=== PATIENT | male | born 1955 | race African-American/Black ===

== ENCOUNTER 2017-08-08 19:06 | Emergency (ER) | payer MEDICARE, OTHER ==
[~2017-08-08] VITALS: Ht 167.6 cm; Wt 40.0 kg
[~2017-08-08 19:06] MED LIST: ALBU1AER INH; ALPR0.5T99 PO; ASPI325T PO; ATOR10TA PO; FURO40TA PO; HYDR200T42 PO; LIDO5DIS35 TD; LORTA10 PO; METO25CR PO; NORV10TA PO; OMEP20TA39 PO; OXYC15TA PO; POTA-243 PO; PRED10 PO; SOMA350T PO; SPIRCAP INH; SYMB80AE INH; TRAZ50TA4 PO
[2017-08-08 19:17] VITALS: BP 110/67; PULSE 99; RESP 18; TEMP 99.9
--- NOTE | 2017-08-08 19:34 | PD ---
HPI Chief Complaint: GI Complaint Time Seen by Provider: 19:24 Travel History International Travel<30 days: No Contact w/Intl Traveler<30days: No Traveled to known affect area: No History of Present Illness HPI Patient is a 62-year-old male with lupus presents emergency department for evaluation of nausea vomiting and loose stools for the past few days. Patient states he thinks he is dehydrated. He states that he has pain but all over but no significant pain in his abdomen. Patient is quite thin and when asked about weight loss he states he has lost 5 pounds in the past couple of months. Review his records shows that he was here in 2016 at that time weight in excess of 52 kg and today only weighs 40 kg. These are actual measured weights as documented in our EMR. The patient denies any blood in the stool blood in the emesis. He states he has had colonoscopy which was negative, states been sometimes he had a chest x-ray. No other close sick contacts. He is accompanied by several family members all of whom appear healthy. Patient states the symptoms are severe, for the past few days, associated signs and symptoms in context as above per PFSH Past Medical History Arthritis: Yes Asthma: Yes Autoimmune Disease: Yes (HX OF LUPUS SINCE 1988) Anxiety: Yes Heart Rhythm Problems: No Cancer: No Cardiac Catheterization: Yes Cardiovascular Problems: Yes (STENT X2, [place] ) High Cholesterol: Yes Chest Pain: Yes COPD: No Cerebrovascular Accident: Yes Coronary Artery Disease: Yes Diabetes: No Diminished Hearing: No Endocrine: No GERD: No Glaucoma: No Genitourinary: No Headaches: No Hepatitis: No Hiatal Hernia: No Hypertension: Yes Immune Disorder: Yes (LUPUS) Kidney Stones: No Medical other: Yes ( PANCREATITIES) Musculoskeletal: Yes (ARTHRITIS, BACK) Neurologic: Yes (SEIZURES) Psychiatric: Yes (ANXIETY, DEPRESSION) Reproductive: No Respiratory: Yes (ASTHMA, COPD) Immunizations Current: No Migraines: No Myocardial Infarction: Yes Pancreatitis: Yes Renal Failure: No Seizures: No Sleep Apnea: No Thyroid Disease: No Ulcer: No Tetanus Vaccination: > 5 Years Influenza Vaccination: No PNEUMOCCOCAL Vaccine (Year): 1 Past Surgical History Abdominal Surgery: No Appendectomy: No Body Medical Devices: STENT Cardiac Surgery: Yes (STENT, CABG) Cholecystectomy: No Coronary Stent: Yes (06/10 X 5) Ear Surgery: No Endocrine Surgery: No Eye Surgery: No Genitourinary Surgery: Yes (BILATERAL INGUNIAL HERNIA) Gynecologic Surgery: No Oral Surgery: No Pacemaker: No Thoracic Surgery: No Other Surgery: Yes (HERNIA REPAIR X 2) Social History Alcohol Use: No Tobacco Use: No (QUIT MARCH 2013) Substance Use: No Allergies-Medications (Allergen,Severity, Reaction): Coded Allergies: Sulfa (Sulfonamide Antibiotics) (Unverified Allergy, Severe, SWELLING, 08/08) acetaminophen (Unverified Allergy, Severe, ALLERGIC TO BINDER - ITCHING, ) benazepril (Unverified Allergy, Severe, ANGIOEDEMA, 08/08/17) captopril (Unverified Allergy, Severe, ANGIOEDEMA, 08/08/17) codeine (Unverified Allergy, Severe, ALLERGIC TO BINDER - ITCHING, 08/08/17) enalaprilat (Unverified Allergy, Severe, ANGIOEDEMA, 08/08/17) fosinopril (Unverified Allergy, Severe, ANGIOEDEMA, 08/08/17) lisinopril (Unverified Allergy, Severe, ANGIOEDEMA, 08/08/17) methotrexate (Unverified Allergy, Severe, SWELLING, 08/08/17) quinapril (Unverified Allergy, Severe, ANGIOEDEMA, 08/08/17) *MDRO Multi-Drug Resistant Organism (Verified Allergy, Unknown, 08/08/17) MRSA Reported Meds & Prescriptions Reported Meds & Active Scripts Active Zofran (Ondansetron HCl) 4 Mg Tab 4 Mg PO Q6HR PRN Reported Plaquenil (Hydroxychloroquine Sulfate) 200 Mg Tab 200 Mg PO BID Take with food Prednisone 20 Mg Tab 20 Mg PO DIRECTED 40 MG twice a day x 3 days, then 20 MG daily x 3 days, then 10 MG daily x 3 days Spiriva Handihaler (Tiotropium Inh) 18 Mcg Cap 18 Mcg INH DAILY 1 capsule = 18 mcg Trazodone (Trazodone HCl) 50 Mg Tab 50 Mg PO HS Potassium Chloride ER (Potassium Chloride) 10 Meq Tab 10 Meq PO BID Omeprazole 20 Mg Tab 20 Mg PO DAILY Metoprolol Succinate ER 24 HR (Metoprolol Succinate) 25 Mg Tab 25 Mg PO DAILY Norvasc (Amlodipine Besylate) 10 Mg Tab 10 Mg PO DAILY Oxycodone (Oxycodone HCl) 15 Mg Tab 15 Mg PO Q6H PRN Hydrocodone-Acetaminophen 10-325 mg Tab 1 Tab PO Q6H PRN Lasix (Furosemide) 40 Mg Tab 40 Mg PO DAILY Soma (Carisoprodol) 350 Mg Tab 350 Mg PO QID PRN Symbicort Inh (Budesonide/Formoterol Fumarate) 80-4.5 Mcg/Act Aero 1 Puff INH Q12HR Atorvastatin (Atorvastatin Calcium) 10 Mg Tab 10 Mg PO HS Aspirin 325 Mg Tab 325 Mg PO DAILY Xanax (Alprazolam) 2 Mg Tab 2 Mg PO Q8H PRN Proair Hfa 8.5 GM Inh (Albuterol Sulfate) 90 Mcg/Act Aer 2 Puff INH Q4-6H PRN 108 mcg/actuation Review of Systems Except as stated in HPI: all other systems reviewed are Neg Physical Exam Narrative GENERAL: Well-developed, cachectic male with temporal wasting. Nontoxic appearance. SKIN: Focused skin assessment warm/dry. HEAD: Atraumatic. Normocephalic. EYES: Pupils equal and round. No scleral icterus. No injection or drainage. ENT: No nasal bleeding or discharge. Mucous membranes pink and moist. NECK: Trachea midline. No JVD. CARDIOVASCULAR: Regular rate and rhythm. No murmur appreciated. RESPIRATORY: No accessory muscle use. Clear to auscultation. Breath sounds equal bilaterally. GASTROINTESTINAL: Abdomen soft, non-tender, nondistended. Hepatic and splenic margins not palpable. MUSCULOSKELETAL: No obvious deformities. No clubbing. No cyanosis. No edema. NEUROLOGICAL: Awake and alert. No obvious cranial nerve deficits. Motor grossly within normal limits. Normal speech. PSYCHIATRIC: Appropriate mood and affect; insight and judgment normal. Data Data Last Documented VS Vital Signs Date Time Temp Pulse Resp B/P (MAP) Pulse Ox O2 Delivery O2 Flow Rate FiO2 08/08/17 23:38 85 16 111/75 (87) 96 08/08/17 19:17 99.9 Orders Orders Complete Blood Count With Diff (08/08/17 19:33) Comprehensive Metabolic Panel (08/08/17 19:33) Lipase (08/08/17 19:33) Prothrombin Time / Inr (Pt) (08/08/17 19:33) Act Partial Throm Time (Ptt) (08/08/17 19:33) Urinalysis - C+S If Indicated (08/08/17 19:33) Iv Access Insert/Monitor (08/08/17 19:33) Ecg Monitoring (08/08/17 19:33) Oximetry (08/08/17 19:33) Ondansetron Inj (Zofran Inj) (08/08/17 19:45) Sodium Chloride 0.9% Flush (Ns Flush) (08/08/17 19:45) Electrocardiogram (08/08/17 19:33) Chest, Single Ap (08/08/17 19:33) Sodium Chlorid 0.9% 500 Ml Inj (Ns 500 M (08/08/17 19:45) Ct Abd/Pel W Iv Contrast(Rout) (08/08/17 ) Oral Contrast - Adult (08/08/17 20:11) Diatrizoate Liq ( Gastrosay Liq) (08/08/17 21:03) Ondansetron Inj (Zofran Inj) (08/08/17 22:00) Iohexol 350 Inj (Omnipaque 350 Inj) (08/08/17 23:03) Ed Discharge Order (08/08/17 23:30) Labs Laboratory Tests Test 08/08/17 19:50 08/08/17 20:23 White Blood Count 3.0 TH/MM3 Red Blood Count 4.88 MIL/MM3 Hemoglobin 13.1 GM/DL Hematocrit 40.6 % Mean Corpuscular Volume 83.2 FL Mean Corpuscular Hemoglobin 26.8 PG Mean Corpuscular Hemoglobin Concent 32.2 % Red Cell Distribution Width 13.4 % Platelet Count 192 TH/MM3 Mean Platelet Volume 8.7 FL CBC Comment AUTO DIFF Differential Total Cells Counted 100 Neutrophils % (Manual) 62 % Band Neutrophils % 2 % Lymphocytes % 29 % Monocytes % 7 % Neutrophils # (Manual) 1.9 TH/MM3 Differential Comment FINAL DIFF MANUAL Atypical Lymphocytes % Platelet Estimate NORMAL Platelet Morphology Comment NORMAL Ovalocytes 1+ Prothrombin Time 12.7 SEC Prothromb Time International Ratio 1.3 RATIO Activated Partial Thromboplast Time 52.3 SEC Blood Urea Nitrogen 30 MG/DL Creatinine 0.79 MG/DL Random Glucose 90 MG/DL Total Protein 9.5 GM/DL Albumin 3.1 GM/DL Calcium Level 9.4 MG/DL Alkaline Phosphatase 93 U/L Aspartate Amino Transf (AST/SGOT) 77 U/L Alanine Aminotransferase (ALT/SGPT) 24 U/L Total Bilirubin 0.4 MG/DL Sodium Level 134 MEQ/L Potassium Level 4.8 MEQ/L Chloride Level 99 MEQ/L Carbon Dioxide Level 27.8 MEQ/L Anion Gap 7 MEQ/L Estimat Glomerular Filtration Rate 120 ML/MIN Lipase 317 U/L Urine Color YELLOW Urine Turbidity CLEAR Urine pH 6.0 Urine Specific Reagan 1.020 Urine Protein 30 mg/dL Urine Glucose (UA) NEG mg/dL Urine Ketones NEG mg/dL Urine Occult Blood NEG Urine Nitrite NEG Urine Bilirubin NEG Urine Urobilinogen 0.2 MG/DL Urine Leukocyte Esterase NEG Urine RBC 0-3 /hpf Urine WBC 0-2 /hpf Urine Squamous Epithelial Cells 0-5 /hpf Microscopic Urinalysis Comment CULT NOT INDICATED MDM Medical Decision Making Medical Screen Exam Complete: Yes Emergency Medical Condition: Yes Differential Diagnosis Undiagnosed cancer, malnourishment, dehydration, acute kidney injury, electrolyte abnormality, gastritis, gastroenteritis, pancreatitis, cholecystitis. Narrative Course Patient was roomed in the emergency department, cachectic my concern is for undiagnosed cancer in this patient, the chest x-ray was negative on him and a CAT scan of his abdomen was also negative. Basic labs are also reassuring. The patient was given normal saline and Zofran was able to tolerate his p.o. contrast just fine. Feeling better he was reassured with these negative imaging. I discussed with him pushing p.o. nutrition and he is taking Ensure twice a day already. Also discussed with him a multivitamin. I told him that he is welcome to eat any food he desires at this time as he needs to gain some weight. Discussed with him need to follow-up with his primary care physician return to ED criteria. He and his family are all very pleasant and thanks me. I discussed with them that they are welcome to return to the emergency department anytime they think he has an acute emergency. Diagnosis Primary Impression: N&V (nausea and vomiting) Med/Other Pt SpecificInfo: Prescription(s) given Scripts Ondansetron (Zofran) 4 Mg Tab 4 MG PO Q6HR Y for NAUSEA OR VOMITING, #20 TAB 0 Refills Prov: Sanjiv Heaton MD 08/08/17 Disposition: 01 DISCHARGE HOME Condition: Stable Sanjiv Heaton MD Aug 08, 2017 19:34
[2017-08-08] MEDS ORDERED: XANA2TAB2 PO (19:40)
[2017-08-08] MEDS ORDERED: FURO1TAB60 PO (19:40)
[2017-08-08] MEDS ORDERED: TRAZ50TA12 PO (19:40)
[2017-08-08] MEDS ORDERED: ATOR10TA15 PO (19:40)
[2017-08-08] MEDS ORDERED: OMEP20TA93 PO (19:40)
[2017-08-08] MEDS ORDERED: OXYC15TA PO (19:40)
[2017-08-08] MEDS ORDERED: ALBUAER3 INH (19:40)
[2017-08-08] MEDS ORDERED: PLAQ200T PO (19:40)
[2017-08-08] MEDS ORDERED: POTA10TA2 PO (19:40)
[2017-08-08] MEDS ORDERED: ASPI-183 PO (19:40)
[2017-08-08] MEDS ORDERED: SYMB80AE INH (19:40)
[2017-08-08] MEDS ORDERED: METO1TAB42 PO (19:40)
[2017-08-08] MEDS ORDERED: SPIRCAP INH (19:40)
[2017-08-08] MEDS ORDERED: PRED20 PO (19:40)
[2017-08-08] MEDS ORDERED: AMLO10 PO (19:40)
[2017-08-08] MEDS ORDERED: HYDR-3583 PO (19:40)
[2017-08-08] MEDS ORDERED: SOMA350T PO (19:40)
[2017-08-08] MEDS ORDERED: ONDANSETRON HCL 4 MG/2 ML VIAL IVP ONE (19:45)
[2017-08-08] MEDS ORDERED: SODIUM CHLORID 0.9% 500 ML INJ 500 ML IV ONE (19:45)
[2017-08-08] MEDS ORDERED: SODIUM CHLORIDE 0.9% FLUSH 10 ML FLUSH IV FLUSH PRN (19:45)
--- NOTE | 2017-08-08 20:14 | RADRPT ---
EXAM DATE/TIME: 08/08/2017 19:40 [facility] COMPARISON: CHEST SINGLE AP, July 16, 2014, 13:56. INDICATIONS : Cough. MEDICAL HISTORY : Hypertension. Myocardial infarction. Lupus. Coronary artery disease. Asthma. COPD. SURGICAL HISTORY : CABG. Coronary artery stent. Cardiac catheterization. ENCOUNTER: Initial ACUITY: 2 weeks PAIN SCORE: 0/10 LOCATION: Bilateral chest FINDINGS: A single view of the chest demonstrates postoperative CABG. No consolidation or effusion. No pneumoth orax. CONCLUSION: 1. Postop CABG. No active disease. Usama Daniels MD on August 08, 2017 at 20:10 Board Certified Radiologist. This report was verified electronically.
[2017-08-08 20:24] LABS: CHLORIDE 99 MEQ/L (98-107); SODIUM (NA) 134 MEQ/L (136-145)
[2017-08-08 20:30] LABS: ALBUMIN 3.1 GM/DL (3.4-5.0); BICARBONATE 27.8 MEQ/L (21.0-32.0); BLOOD UREA NITROGEN 30 MG/DL (7-18); CALCIUM 9.4 MG/DL (8.5-10.1); GLUCOSE,RANDOM 90 MG/DL (74-106)
[2017-08-08 20:31] LABS: HEMATOCRIT 40.6 % (39.0-51.0); HEMOGLOBIN 13.1 GM/DL (13.0-17.0); MEAN CELL VOLUME 83.2 FL (80.0-100.0); MEAN CORPUSCULAR HEMOGLOBIN 26.8 PG (27.0-34.0); MEAN CORPUSCULAR HGB CONC 32.2 % (32.0-36.0); MEAN PLATELET VOLUME 8.7 FL (7.0-11.0); PLATELET COUNT 192 TH/MM3 (150-450); RED BLOOD COUNT 4.88 MIL/MM3 (4.50-5.90); RED CELL DISTRIBUTION WIDTH 13.4 % (11.6-17.2)
[2017-08-08 20:33] LABS: ALT (GPT) 24 U/L (12-78); AST (GOT) 77 U/L (15-37); CREATININE 0.79 MG/DL (0.60-1.30); GLOMERULAR FILTRATION RATE 120 ML/MIN (>89)
[2017-08-08 20:34] LABS: TOTAL BILIRUBIN ADULT 0.4 MG/DL (0.2-1.0); TOTAL PROTEIN 9.5 GM/DL (6.4-8.2)
[2017-08-08 20:36] LABS: ALKALINE PHOSPHATASE 93 U/L (45-117)
[2017-08-08 20:37] LABS: INTERNATIONAL NORMALIZED RATIO 1.3 RATIO; PROTHROMBIN TIME - PATIENT 12.7 SEC (9.8-11.6)
[2017-08-08 20:40] LABS: BILIRUBIN, URINE NEG (NEG); BLOOD, URINE NEG (NEG); GLUCOSE,URINE NEG (NEG); KETONE, URINE NEG (NEG); NITRITE,URINE NEG (NEG); URINE COLOR YELLOW (YELLW/STRAW); URINE LEUKOCYTE ESTERASE NEG (NEG)
[2017-08-08 20:51] LABS: RBC, URINE 0-3 /hpf (0-3); SQUAMOUS EPITHELIAL CELL URINE 0-5 /hpf (0-5); WBC, URINE 0-2 /hpf (0-5)
[2017-08-08] MEDS ORDERED: DIATRIZOATE MEGLUM/DIATRIZOATE SOD 9 ML CUP ONE (21:03)
[2017-08-08 21:06] LABS: BANDS 2 % (0-6); LYMPHOCYTES 29 % (9-44); MONOCYTES 7 % (0-8); NEUTROPHIL # MANUAL DIFF 1.9 TH/MM3 (1.8-7.7); OVALOCYTES 1+ (NORMAL); POLYS (SEG NEUTROPHILS) 62 % (16-70)
--- NOTE | 2017-08-08 21:35 | EKG ---
Date Performed: 08/08/2017 Time Performed: 19:40:13 PTAGE: 62 years EKG: Sinus rhythm VOLTAGE CRITERIA FOR LVH POSSIBLE SEPTAL MYOCARDIAL INFARCTION ABNORMAL ECG Compared to prior electr ocardiogram, Nonspecific T wave changes are less marked PREVIOUS TRACING : 12/16/2015 09.43 DOCTOR: Cristian Szymanski Interpretating Date/Time 08/08/2017 21:33:56
[2017-08-08 21:55] VITALS: BP 133/73; PULSE 73; RESP 16
[2017-08-08] MEDS ORDERED: ONDANSETRON HCL 4 MG/2 ML VIAL IV PUSH ONE (22:00)
[2017-08-08] MEDS ORDERED: IOHEXOL 350 MG/ML 10 ML VIAL (for RAD DIAG) IVCONTRAST ONE (23:03)
--- NOTE | 2017-08-08 23:14 | RADRPT ---
EXAM DATE/TIME: 08/08/2017 22:37 [facility] COMPARISON: No previous studies available for comparison. INDICATIONS : Abdominal pain. Nausea. IV CONTRAST: 100 cc Omnipaque 350 (iohexol) IV ORAL CONTRAST: Prescribed oral contrast ingested. RADIATION DOSE: 4.44 CTDIvol (mGy) MEDICAL HISTORY : Pancreatitis. Cardiovascular disease Chronic obstructive pulmonary disease. SURGICAL HISTORY : Inguinal hernia repair. Coronary artery stent. ENCOUNTER: Initial ACUITY: 1 day PAIN SCALE: 0/10 LOCATION: Abdomen. TECHNIQUE: Volumetric scanning of the abdomen and pelvis was performed. Using automated exposure control and ad justment of the mA and/or kV according to patient size, radiation dose was kept as low as reasonably achievable to obtain optimal diagnostic quality images. DICOM format image data is available electro nically for review and comparison. FINDINGS: LOWER LUNGS: Bibasilar scarring greater right lower lobe. LIVER: Homogeneous density with subcentimeter low-density in the right lobe. There is no dilation of the bi liary tree. No calcified gallstones. SPLEEN: Normal size without lesion. PANCREAS: Within normal limits. KIDNEYS: Normal in size and shape. There is no mass, stone or hydronephrosis. ADRENAL GLANDS: [place] generally normal. Left adrenal gland contains macroscopic fat consistent with myelolipoma.. VASCULAR: There is no aortic aneurysm. Mild atherosclerotic changes of the abdominal aorta. BOWEL/MESENTERY: Mild dilatation of the stomach which contains fluid. The small bowel, and colon demonstrate no acute abnormality. There is no free intraperitoneal air or fluid. ABDOMINAL WALL: Within normal limits. RETROPERITONEUM: There is no lymphadenopathy. BLADDER: No wall thickening or mass. REPRODUCTIVE: Within normal limits. INGUINAL: There is no lymphadenopathy or hernia. MUSCULOSKELETAL: Spondylolisthesis/spondylolysis at the lumbosacral junction. CONCLUSION: 1. Subcentimeter hepatic low-density likely benign. 2. Benign left adrenal myelolipoma 3. Stomach is mildly dilated. 4. No acute inflammatory process. Dominik Sánchez MD on August 08, 2017 at 23:06 Board Certified Radiologist. This report was verified electronically.
[2017-08-08] MEDS ORDERED: ZOFR4TAB PO (23:32)
[2017-08-08 23:38] VITALS: BP 111/75
== END 2017-08-08 23:47 | disposition home or self-care (01) ==
LOC: PHED 19:06
DX: R11.2 Nausea with vomiting, unspecified (principal); M32.9 Systemic lupus erythematosus, unspecified; F41.9 Anxiety disorder, unspecified; I10 Essential (primary) hypertension; E78.00 Pure hypercholesterolemia, unspecified; I25.10 Atherosclerotic heart disease of native coronary artery without angina pectoris; F32.9 Major depressive disorder, single episode, unspecified; Z86.73 Personal history of transient ischemic attack (TIA), and cerebral infarction without residual deficits; Z87.891 Personal history of nicotine dependence
CPT/HCPCS: 71045; 74177; 80053; 81001; 83690; 85007; 85027; 85610; 85730; 93005; 96361; 96374; 96376; 99285; J2405; J7040; Q9963; Q9967

== ENCOUNTER 2017-08-19 14:34 | Inpatient (IN) | payer MEDICARE, MEDICAID ==
[~2017-08-19] VITALS: Ht 170.2 cm; Wt 46.0 kg
[~2017-08-19 14:34] MED LIST changes: -ALBU1AER INH; +ALBUAER3 INH; -ALPR0.5T99 PO; +AMLO10 PO; +ASPI-183 PO; -ASPI325T PO; -ATOR10TA PO; +ATOR10TA15 PO; +FURO1TAB60 PO; -FURO40TA PO; +HYDR-3583 PO; -HYDR200T42 PO; -LIDO5DIS35 TD; -LORTA10 PO; +METO1TAB42 PO; -METO25CR PO; -NORV10TA PO; -OMEP20TA39 PO; +OMEP20TA93 PO; +PLAQ200T PO; -POTA-243 PO; +POTA10TA2 PO; -PRED10 PO; +PRED20 PO; +TRAZ50TA12 PO; -TRAZ50TA4 PO; +XANA2TAB2 PO; +ZOFR4TAB PO
[2017-08-19 14:47] VITALS: BP 104/76; PULSE 83; RESP 16; TEMP 98.1; O2SAT 94
[2017-08-19 15:20] LABS: AUTOMATED NEUTROPHIL # 2.2 TH/MM3 (1.8-7.7); BASOPHIL % 0.4 % (0.0-2.0); LYMPH % 20.6 % (9.0-44.0); LYMPHOCYTE # 0.6 TH/MM3 (1.0-4.8); MEAN CELL VOLUME 81.5 FL (80.0-100.0); MEAN CORPUSCULAR HEMOGLOBIN 26.5 PG (27.0-34.0); MEAN CORPUSCULAR HGB CONC 32.5 % (32.0-36.0); MEAN PLATELET VOLUME 8.4 FL (7.0-11.0); MONO % 8.4 % (0.0-8.0); MONOCYTE # 0.3 TH/MM3 (0-0.9); NEUT % 70.6 % (16.0-70.0); PLATELET COUNT 142 TH/MM3 (150-450); RED BLOOD COUNT 4.54 MIL/MM3 (4.50-5.90); RED CELL DISTRIBUTION WIDTH 14.2 % (11.6-17.2); WHITE BLOOD COUNT 3.1 TH/MM3 (4.0-11.0)
[2017-08-19 15:33] LABS: ALBUMIN 2.8 GM/DL (3.4-5.0); ALT (GPT) 36 U/L (12-78); AST (GOT) 121 U/L (15-37); BICARBONATE 23.4 MEQ/L (21.0-32.0); BLOOD UREA NITROGEN 46 MG/DL (7-18); CALCIUM 8.5 MG/DL (8.5-10.1); CHLORIDE 103 MEQ/L (98-107); CREATININE 0.97 MG/DL (0.60-1.30); GLOMERULAR FILTRATION RATE 95 ML/MIN (>89); GLUCOSE,RANDOM 102 MG/DL (74-106); SODIUM (NA) 134 MEQ/L (136-145)
[2017-08-19 15:35] LABS: ALKALINE PHOSPHATASE 113 U/L (45-117); TOTAL BILIRUBIN ADULT 0.2 MG/DL (0.2-1.0); TOTAL PROTEIN 8.8 GM/DL (6.4-8.2)
--- NOTE | 2017-08-19 15:51 | RADRPT ---
EXAM DATE/TIME: 08/19/2017 15:37 [facility] COMPARISON: CHEST SINGLE AP, August 08, 2017, 19:40. INDICATIONS : Weakness for 3 weeks MEDICAL HISTORY : Hypertension. Myocardial infarction. Lupus. Coronary artery disease. Asthma. COPD. SURGICAL HISTORY : CABG. Coronary artery stent. Cardiac catheterization ENCOUNTER: Initial ACUITY: 3 weeks PAIN SCORE: 0/10 LOCATION: Bilateral chest FINDINGS: Lungs are mildly hyperinflated. Sternal wires and bypass are noted. There is no pneumothorax.. The cardiomediastinal contours are unremarkable. Osseous structures are intact. CONCLUSION: Marked hyperinflation Foster Dobbs MD FACR on August 19, 2017 at 15:48 Board Certified Radiologist. This report was verified electronically.
--- NOTE | 2017-08-19 16:43 | PD ---
HPI Chief Complaint: General Weakness Time Seen by Provider: 16:02 Travel History International Travel<30 days: No Contact w/Intl Traveler<30days: No Traveled to known affect area: No History of Present Illness HPI 62-year-old male that presents to the ED for evaluation of generalized weakness and shortness of breath. Patient has a significant history of lupus as well as COPD. Per patient he does not use oxygen at home with his oxygen here. Patient states that his been losing a lot of weight. Patient is very anorexic. He was seen here earlier this month for similar symptoms and was discharged home with instructions to increase his diet. Patient continues to deteriorate per patient. He was put on oxygen here with some improvement of his shortness of breath. Per patient he believes this is a flareup of his lupus. He states that he has been worked up for cancer and has been negative. He does have multiple allergies to different medications. Denies any falls or injuries but per notes per nurse patient has been falling multiple times. Denies any blood thinners. No chest pain but states having shortness of breath with exertion as well as with sitting down and laying down. No other medical issues at this time. Per medical records patient does have a history of heart disease as well as taking multiple chronic pain medications. PFSH Past Medical History Arthritis: Yes Asthma: Yes Autoimmune Disease: Yes (HX OF LUPUS SINCE 1988) Anxiety: Yes Heart Rhythm Problems: No Cancer: No Cardiac Catheterization: Yes Cardiovascular Problems: Yes (STENT X2, [place] ) High Cholesterol: Yes Chest Pain: Yes COPD: No Cerebrovascular Accident: Yes Coronary Artery Disease: Yes Diabetes: No Diminished Hearing: No Endocrine: No GERD: No Glaucoma: No Genitourinary: No Headaches: No Hepatitis: No Hiatal Hernia: No Hypertension: Yes Immune Disorder: Yes (LUPUS) Kidney Stones: No Musculoskeletal: Yes (ARTHRITIS, BACK) Neurologic: Yes (SEIZURES) Psychiatric: Yes (ANXIETY, DEPRESSION) Reproductive: No Respiratory: Yes (ASTHMA, COPD) Immunizations Current: No Migraines: No Myocardial Infarction: Yes Pancreatitis: Yes Renal Failure: No Seizures: No Sleep Apnea: No Thyroid Disease: No Ulcer: No PNEUMOCCOCAL Vaccine (Year): 1 Past Surgical History Abdominal Surgery: No Appendectomy: No Body Medical Devices: STENT Cardiac Surgery: Yes (STENT, CABG) Cholecystectomy: No Coronary Stent: Yes (06/10 X 5) Ear Surgery: No Endocrine Surgery: No Eye Surgery: No Genitourinary Surgery: Yes (BILATERAL INGUNIAL HERNIA) Gynecologic Surgery: No Oral Surgery: No Pacemaker: No Thoracic Surgery: No Other Surgery: Yes (HERNIA REPAIR X 2) Social History Alcohol Use: No Tobacco Use: No (QUIT MARCH 2013) Substance Use: No Allergies-Medications (Allergen,Severity, Reaction): Coded Allergies: Sulfa (Sulfonamide Antibiotics) (Unverified Allergy, Severe, SWELLING, 08/08) acetaminophen (Unverified Allergy, Severe, ALLERGIC TO BINDER - ITCHING, ) benazepril (Unverified Allergy, Severe, ANGIOEDEMA, 08/08/17) captopril (Unverified Allergy, Severe, ANGIOEDEMA, 08/08/17) codeine (Unverified Allergy, Severe, ALLERGIC TO BINDER - ITCHING, 08/08/17) enalaprilat (Unverified Allergy, Severe, ANGIOEDEMA, 08/08/17) fosinopril (Unverified Allergy, Severe, ANGIOEDEMA, 08/08/17) lisinopril (Unverified Allergy, Severe, ANGIOEDEMA, 08/08/17) methotrexate (Unverified Allergy, Severe, SWELLING, 08/08/17) quinapril (Unverified Allergy, Severe, ANGIOEDEMA, 08/08/17) *MDRO Multi-Drug Resistant Organism (Verified Allergy, Unknown, 08/08/17) MRSA Reported Meds & Prescriptions Reported Meds & Active Scripts Active Zofran (Ondansetron HCl) 4 Mg Tab 4 Mg PO Q6HR PRN Reported Plaquenil (Hydroxychloroquine Sulfate) 200 Mg Tab 200 Mg PO BID Take with food Prednisone 20 Mg Tab 20 Mg PO DIRECTED 40 MG twice a day x 3 days, then 20 MG daily x 3 days, then 10 MG daily x 3 days Spiriva Handihaler (Tiotropium Inh) 18 Mcg Cap 18 Mcg INH DAILY 1 capsule = 18 mcg Trazodone (Trazodone HCl) 50 Mg Tab 50 Mg PO HS Potassium Chloride ER (Potassium Chloride) 10 Meq Tab 10 Meq PO BID Omeprazole 20 Mg Tab 20 Mg PO DAILY Metoprolol Succinate ER 24 HR (Metoprolol Succinate) 25 Mg Tab 25 Mg PO DAILY Norvasc (Amlodipine Besylate) 10 Mg Tab 10 Mg PO DAILY Oxycodone (Oxycodone HCl) 15 Mg Tab 15 Mg PO Q6H PRN Hydrocodone-Acetaminophen 10-325 mg Tab 1 Tab PO Q6H PRN Lasix (Furosemide) 40 Mg Tab 40 Mg PO DAILY Soma (Carisoprodol) 350 Mg Tab 350 Mg PO QID PRN Symbicort Inh (Budesonide/Formoterol Fumarate) 80-4.5 Mcg/Act Aero 1 Puff INH Q12HR Atorvastatin (Atorvastatin Calcium) 10 Mg Tab 10 Mg PO HS Aspirin 325 Mg Tab 325 Mg PO DAILY Xanax (Alprazolam) 2 Mg Tab 2 Mg PO Q8H PRN Proair Hfa 8.5 GM Inh (Albuterol Sulfate) 90 Mcg/Act Aer 2 Puff INH Q4-6H PRN 108 mcg/actuation Review of Systems Except as stated in HPI: all other systems reviewed are Neg Physical Exam Narrative GENERAL: Very anorexic. SKIN: Warm and dry. Patient has what appears to be old scars to his head HEAD: Atraumatic. Normocephalic. EYES: Pupils equal and round. No scleral icterus. No injection or drainage. ENT: No nasal bleeding or discharge. Mucous membranes pink and moist. Tongue is midline. No uvula deviation. NECK: Trachea midline. No JVD. CARDIOVASCULAR: Regular rate and rhythm. No murmurs, S3, S4. RESPIRATORY: No accessory muscle use. Clear to auscultation. Breath sounds equal bilaterally. GASTROINTESTINAL: Abdomen soft, non-tender, nondistended. Hepatic and splenic margins not palpable. MUSCULOSKELETAL: Extremities without clubbing, cyanosis, or edema. No obvious deformities. Full range of motion of the upper and lower extremities bilaterally. 2+ pulses bilaterally. NEUROLOGICAL: Awake and alert. No obvious cranial nerve deficits. Motor grossly within normal limits. Five out of 5 muscle strength in the arms and legs. Normal speech. PSYCHIATRIC: Appropriate mood and affect; insight and judgment normal. Data Data Last Documented VS Vital Signs Date Time Temp Pulse Resp B/P (MAP) Pulse Ox O2 Delivery O2 Flow Rate FiO2 08/19/17 14:47 98.1 83 16 104/76 (85) 94 Orders Orders Electrocardiogram (08/19/17 14:52) Complete Blood Count With Diff (08/19/17 14:52) Comprehensive Metabolic Panel (08/19/17 14:52) Iv Access Insert/Monitor (08/19/17 14:52) Chest, Single Ap (08/19/17 ) Troponin I (08/19/17 15:29) Ckmb (Isoenzyme) Profile (08/19/17 15:29) Coag Profile (08/19/17 15:29) D-Dimer (08/19/17 15:29) Labs Laboratory Tests Test 08/19/17 14:56 White Blood Count 3.1 TH/MM3 Red Blood Count 4.54 MIL/MM3 Hemoglobin 12.0 GM/DL Hematocrit 37.0 % Mean Corpuscular Volume 81.5 FL Mean Corpuscular Hemoglobin 26.5 PG Mean Corpuscular Hemoglobin Concent 32.5 % Red Cell Distribution Width 14.2 % Platelet Count 142 TH/MM3 Mean Platelet Volume 8.4 FL Neutrophils (%) (Auto) 70.6 % Lymphocytes (%) (Auto) 20.6 % Monocytes (%) (Auto) 8.4 % Eosinophils (%) (Auto) 0.0 % Basophils (%) (Auto) 0.4 % Neutrophils # (Auto) 2.2 TH/MM3 Lymphocytes # (Auto) 0.6 TH/MM3 Monocytes # (Auto) 0.3 TH/MM3 Eosinophils # (Auto) 0.0 TH/MM3 Basophils # (Auto) 0.0 TH/MM3 CBC Comment DIFF FINAL Differential Comment Blood Urea Nitrogen 46 MG/DL Creatinine 0.97 MG/DL Random Glucose 102 MG/DL Total Protein 8.8 GM/DL Albumin 2.8 GM/DL Calcium Level 8.5 MG/DL Alkaline Phosphatase 113 U/L Aspartate Amino Transf (AST/SGOT) 121 U/L Alanine Aminotransferase (ALT/SGPT) 36 U/L Total Bilirubin 0.2 MG/DL Sodium Level 134 MEQ/L Potassium Level 4.6 MEQ/L Chloride Level 103 MEQ/L Carbon Dioxide Level 23.4 MEQ/L Anion Gap 8 MEQ/L Estimat Glomerular Filtration Rate 95 ML/MIN MDM Medical Decision Making Medical Screen Exam Complete: Yes Emergency Medical Condition: Yes Medical Record Reviewed: Yes Differential Diagnosis Weakness versus shortness of breath versus ACS versus lupus disease versus chronic weakness versus anorexia versus failure to thrive Narrative Course 62-year-old male that presents to the ED for evaluation of weakness and shortness of breath. Patient was properly examined and was found to have signs and symptoms of unclear etiology. Patient was seen here a couple weeks ago and had blood work and imaging that was essentially unremarkable. Labs and imaging were ordered in triage. Patient will be signed out to oncoming provider pending disposition and plan. Jaylon Dill Aug 19, 2017 16:43
[2017-08-19 17:04] VITALS: BP 111/63; PULSE 78; RESP 16; O2SAT 94
[2017-08-19 17:23] LABS: TROPONIN I 0.04 NG/ML (0.02-0.05)
[2017-08-19 17:39] LABS: INTERNATIONAL NORMALIZED RATIO 1.6 RATIO; PROTHROMBIN TIME - PATIENT 15.7 SEC (9.8-11.6)
[2017-08-19 17:41] LABS: D-DIMER 4.29 MG/L FEU (0.00-0.50)
[2017-08-19 18:09] VITALS: BP 120/77; PULSE 85; RESP 18; O2SAT 100
[2017-08-19 18:22] VITALS: RESP 18; O2SAT 95
--- NOTE | 2017-08-19 18:22 | PD ---
Physical Exam Date Seen by Provider: Aug 19, 2017 Time Seen by Provider: 18:19 Narrative 62-year-old male presents to the emergency department for evaluation of generalized weakness and shortness of breath. Patient reports history of lupus and COPD. Patient was initially seen in the able in his hallway and then transferred to care. Patient states that he is generally weak and has been losing a lot of weight. His granddaughter at bedside provides a lot of his history. She states that he is so weak that he is barely getting out of bed. He can go the bathroom, but cannot go to the kitchen to make his meals. He does live with a friend but she states that he therefore it does not help him. She states that she does and another daughter goes over and helps him. The patient was recently seen and instructed to increase his diet. However, he states that he has been getting worse. He also complains of abdominal pain to me. Patient denies any falls. He denies any syncope. However, according to previous note, the nurse stated the patient had been falling down. The patient is not on anticoagulants. Patient denies exacerbating or alleviating factors. Moderate severity. GENERAL: Cachectic male patient, afebrile SKIN: Focused skin assessment warm/dry. Atraumatic. HEAD: Normocephalic. ENT: Mucosa pink and moist. No erythema or exudates. No uvular edema. No uvular , palatal, or tonsillar deviation. Airway patent. Nasal turbinates appear normal without nasal blood, purulent drainage or septal hematoma. Bilateral tympanic membranes clear without erythema or perforation. EYES: No scleral icterus. No injection or drainage. NECK: Supple, trachea midline. No JVD or lymphadenopathy. CARDIOVASCULAR: Regular rate and rhythm without murmurs, gallops, or rubs. RESPIRATORY: Breath sounds equal bilaterally. No accessory muscle use. Lung sounds clear to auscultation. GASTROINTESTINAL: Abdomen soft, non-tender, nondistended. MUSCULOSKELETAL: No cyanosis, or edema. BACK: Nontender without obvious deformity. No CVA tenderness. Data Data Last Documented VS Vital Signs Date Time Temp Pulse Resp B/P (MAP) Pulse Ox O2 Delivery O2 Flow Rate FiO2 08/19/17 20:00 72 28 136/90 (105) 98 Nasal Cannula 4.00 08/19/17 14:47 98.1 Orders Orders Electrocardiogram (08/19/17 14:52) Complete Blood Count With Diff (08/19/17 14:52) Comprehensive Metabolic Panel (08/19/17 14:52) Iv Access Insert/Monitor (08/19/17 14:52) Chest, Single Ap (08/19/17 ) Troponin I (08/19/17 15:29) Ckmb (Isoenzyme) Profile (08/19/17 15:29) Coag Profile (08/19/17 15:29) D-Dimer (08/19/17 15:29) CKMB (08/19/17 14:56) CKMB% (08/19/17 14:56) Ct Pulmonary Angiogram (08/19/17 ) Ct Abd/Pel W Iv Contrast(Rout) (08/19/17 ) Magnesium (Mg) (08/19/17 18:17) Lipase (08/19/17 18:17) Sodium Chlorid 0.9% 500 Ml Inj (Ns 500 M (08/19/17 18:30) Ondansetron Inj (Zofran Inj) (08/19/17 18:30) Ecg Monitoring (08/19/17 18:17) Oximetry (08/19/17 18:17) Sodium Chloride 0.9% Flush (Ns Flush) (08/19/17 18:30) Iohexol 350 Inj (Omnipaque 350 Inj) (08/19/17 18:38) Urinalysis - C+S If Indicated (08/19/17 18:39) Cath For Specimen (08/19/17 18:39) Admit Order (Ed Use Only) (08/19/17 21:09) Labs Laboratory Tests Test 08/19/17 14:56 08/19/17 16:58 08/19/17 20:20 White Blood Count 3.1 TH/MM3 Red Blood Count 4.54 MIL/MM3 Hemoglobin 12.0 GM/DL Hematocrit 37.0 % Mean Corpuscular Volume 81.5 FL Mean Corpuscular Hemoglobin 26.5 PG Mean Corpuscular Hemoglobin Concent 32.5 % Red Cell Distribution Width 14.2 % Platelet Count 142 TH/MM3 Mean Platelet Volume 8.4 FL Neutrophils (%) (Auto) 70.6 % Lymphocytes (%) (Auto) 20.6 % Monocytes (%) (Auto) 8.4 % Eosinophils (%) (Auto) 0.0 % Basophils (%) (Auto) 0.4 % Neutrophils # (Auto) 2.2 TH/MM3 Lymphocytes # (Auto) 0.6 TH/MM3 Monocytes # (Auto) 0.3 TH/MM3 Eosinophils # (Auto) 0.0 TH/MM3 Basophils # (Auto) 0.0 TH/MM3 CBC Comment DIFF FINAL Differential Comment Blood Urea Nitrogen 46 MG/DL Creatinine 0.97 MG/DL Random Glucose 102 MG/DL Total Protein 8.8 GM/DL Albumin 2.8 GM/DL Calcium Level 8.5 MG/DL Alkaline Phosphatase 113 U/L Aspartate Amino Transf (AST/SGOT) 121 U/L Alanine Aminotransferase (ALT/SGPT) 36 U/L Total Bilirubin 0.2 MG/DL Sodium Level 134 MEQ/L Potassium Level 4.6 MEQ/L Chloride Level 103 MEQ/L Carbon Dioxide Level 23.4 MEQ/L Anion Gap 8 MEQ/L Estimat Glomerular Filtration Rate 95 ML/MIN Magnesium Level 2.4 MG/DL Total Creatine Kinase 148 U/L Creatine Kinase MB 0.9 NG/ML Troponin I 0.04 NG/ML Lipase 549 U/L Prothrombin Time 15.7 SEC Prothromb Time International Ratio 1.6 RATIO Activated Partial Thromboplast Time 55.1 SEC D-Dimer Quantitative (PE/DVT) 4.29 MG/L FEU Urine Color LIGHT-YELLOW Urine Turbidity CLEAR Urine pH 6.0 Urine Specific [place] 1.048 Urine Protein 30 mg/dL Urine Glucose (UA) NEG mg/dL Urine Ketones NEG mg/dL Urine Occult Blood SMALL Urine Nitrite NEG Urine Bilirubin NEG Urine Urobilinogen LESS THAN 2.0 MG/DL Urine Leukocyte Esterase NEG Urine RBC LESS THAN 1 /hpf Urine WBC LESS THAN 1 /hpf Urine Squamous Epithelial Cells 1 /hpf Microscopic Urinalysis Comment CATH-CULT NOT IND MDM Medical Record Reviewed: Yes Supervised Visit with MINDY: No Interpretation(s) Last Impressions Chest X-Ray 08/19/17 0000 Signed Impressions: Service Date/Time: Saturday, August 19, 2017 15:37 - CONCLUSION: Marked hyperinflation Foster Dobbs MD FACR CT Angiography 08/19/17 0000 Signed Impressions: Service Date/Time: Saturday, August 19, 2017 18:32 - CONCLUSION: 1. No pulmonary embolus. 2. Emphysematous change. 3. Suspected scarring or atelectasis at the lung bases. Dm Harding MD Abdomen/Pelvis CT 08/19/17 0000 Signed Impressions: Service Date/Time: Saturday, August 19, 2017 18:32 - CONCLUSION: 1. No definite acute abnormality seen, however, there is a paucity of fat which would make identification of edema difficult. 2. Subcentimeter hepatic mass. This likely are cysts and incidental finding such as a cyst or hemangioma statistically. 3. Atelectasis or scarring at the lung bases. 4. Spondylolisthesis of the L5-S1 level. 5. Left adrenal myelolipoma. Dm Harding MD Differential Diagnosis Electrolyte abnormality versus PE versus UTI versus CVA versus dehydration versus diverticulitis Narrative Course 62-year-old male presents to the emergency department for evaluation of generalized weakness, shortness of breath. Patient is very cachectic on exam. Patient is given normal saline 500 mL bolus per CBC shows leukopenia of 3.1, hgb of 12.0, hct of 37.0. CMP shows BUN 46, creatinine 121. Magnesium is 2.4. CK is 148. Troponin is 0.04. Lipase is 549. PT is 15.7, INR is 1.6, PTT is 55.1, D-dimer is 4.29. Chest x-ray shows marked hyperinflation. CT pulmonary angiogram shows no pulmonary embolus, emphysematous changes, suspected scarring or atelectasis at the lung bases. CT of the abdomen/pelvis shows no definite acute abnormality seen, subcentimeter hepatic mass, likely cyst or hemangioma, atelectasis or scarring in the lung bases, spondylolisthesis of the L5-S1 level, left adrenal myelolipoma. Patient does have elevated lipase been seen earlier this month. He is generally weak and is having trouble doing ADLs at home. Hospitalist is paged for observation. Dr. Banuelos accepted admission. Diagnosis Primary Impression: Abdominal pain Qualified Codes: R10.9 - Unspecified abdominal pain Additional Impressions: Pancreatitis Qualified Codes: K85.90 - Acute pancreatitis without necrosis or infection, unspecified Generalized weakness Admitting Information Admitting Physician Requests: Observation Gail Madera Aug 19, 2017 18:22
[2017-08-19] MEDS ORDERED: SODIUM CHLORIDE 0.9% FLUSH 10 ML FLUSH IVF PRN (18:30)
[2017-08-19] MEDS ORDERED: ONDANSETRON HCL 4 MG/2 ML VIAL IV PUSH ONE (18:30)
[2017-08-19] MEDS ORDERED: SODIUM CHLORID 0.9% 500 ML INJ 500 ML IV ONE (18:30)
[2017-08-19] MEDS ORDERED: IOHEXOL 350 MG/ML 10 ML VIAL (for RAD DIAG) IVCONTRAST ONE (18:38)
[2017-08-19 19:00] VITALS: BP 128/90; PULSE 74; RESP 34; O2SAT 99
--- NOTE | 2017-08-19 19:25 | RADRPT ---
EXAM DATE/TIME: 08/19/2017 18:32 [facility] COMPARISON: No previous studies available for comparison. INDICATIONS : Frequent falls and weakness; rule out pulmonary embolus. IV CONTRAST: 71 cc Omnipaque 350 (iohexol) IV ; Cumulative dose for multiple exams. RADIATION DOSE: 8.74 CTDIvol (mGy) MEDICAL HISTORY : Cardiovascular disease. Seizures. Pancreatitis.CVA, Hypertension, hiatal hernia SURGICAL HISTORY : None. ENCOUNTER: Initial ACUITY: 1 week PAIN SCALE: 0/10 LOCATION: chest TECHNIQUE: Volumetric scanning of the chest was performed using a pulmonary embolism protocol MIP images were re constructed. Using automated exposure control and adjustment of the mA and/or kV according to patien t size, radiation dose was kept as low as reasonably achievable to obtain optimal diagnostic quality images. DICOM format image data is available electronically for review and comparison. Follow-up recommendations for detected pulmonary nodules are based at a minimum on nodule size and pa tient risk factors according to Fleischner Society Guidelines. FINDINGS: PULMONARY ARTERIES: No filling defects are seen in the pulmonary arteries through the segmental level. LUNGS: There is emphysematous change. There is some linear density seen at the posterior lower lobes being m ore prominent on the right likely related to scarring or atelectasis. PLEURAE: There is no pleural thickening or pleural effusion. MEDIASTINUM: There is good visualization of the great vessels of the middle mediastinum. No evidence of mediastin al or hilar adenopathy/mass. The patient is status post sternotomy. MUSCULOSKELETAL: Within normal limits for patient age. MISCELLANEOUS: The visualized upper abdominal organs demonstrate no acute abnormality. CONCLUSION: 1. No pulmonary embolus. 2. Emphysematous change. 3. Suspected scarring or atelectasis at the lung bases. Dm Harding MD on August 19, 2017 at 19:19 Board Certified Radiologist. This report was verified electronically.
[2017-08-19 19:43] LABS: MAGNESIUM 2.4 MG/DL (1.5-2.5)
[2017-08-19 20:00] VITALS: BP 136/90; PULSE 72; RESP 28; O2SAT 98
--- NOTE | 2017-08-19 20:16 | RADRPT ---
EXAM DATE/TIME: 08/19/2017 18:32 [facility] COMPARISON: CT ABDOMEN & PELVIS W CONTRAST, August 08, 2017, 22:37. INDICATIONS : Weakness; patient is emaciated. IV CONTRAST: 71 cc Omnipaque 350 (iohexol) IV ORAL CONTRAST: No oral contrast ingested. RADIATION DOSE: 4.64 CTDIvol (mGy) MEDICAL HISTORY : Cardiovascular disease. Pancreatitis. Seizures.Hiatal hernia SURGICAL HISTORY : None. ENCOUNTER: Initial ACUITY: 1 day PAIN SCALE: 5/10 LOCATION: abdomen TECHNIQUE: Volumetric scanning of the abdomen and pelvis was performed. Using automated exposure control and ad justment of the mA and/or kV according to patient size, radiation dose was kept as low as reasonably achievable to obtain optimal diagnostic quality images. DICOM format image data is available electro nically for review and comparison. FINDINGS: LOWER LUNGS: There is linear scarring or atelectasis at lung bases. LIVER: There is small subcentimeter hypodensity seen in the right lobe of the liver. SPLEEN: Normal size without lesion. PANCREAS: Within normal limits. There is a paucity of intra-abdominal fat making identification of any edema or inflammatory change difficult. KIDNEYS: Normal in size and shape. There is no mass, stone or hydronephrosis. ADRENAL GLANDS: There is a 2.1 cm fat-containing mass of the left adrenal gland likely related to a myelolipoma. VASCULAR: There is no aortic aneurysm. Arterial calcifications are seen throughout. BOWEL/MESENTERY: The stomach, small bowel, and colon demonstrate no acute abnormality. There is no free intraperitone al air or fluid. ABDOMINAL WALL: Within normal limits. RETROPERITONEUM: There is no lymphadenopathy. BLADDER: No wall thickening or mass. REPRODUCTIVE: Within normal limits. INGUINAL: There is no lymphadenopathy or hernia. MUSCULOSKELETAL: There is degenerative change of the lumbar spine. There appears to be some degree of spondylolisthesi s at the L5-S1 level. There is degenerative change of the hips with spurring. CONCLUSION: 1. No definite acute abnormality seen, however, there is a paucity of fat which would make identific ation of edema difficult. 2. Subcentimeter hepatic mass. This likely are cysts and incidental finding such as a cyst or hemangi inocencio statistically. 3. Atelectasis or scarring at the lung bases. 4. Spondylolisthesis of the L5-S1 level. 5. Left adrenal myelolipoma. Dm Harding MD on August 19, 2017 at 20:06 Board Certified Radiologist. This report was verified electronically.
[2017-08-19 20:55] LABS: BILIRUBIN, URINE NEG (NEG); BLOOD, URINE SMALL (NEG); GLUCOSE,URINE NEG (NEG); KETONE, URINE NEG (NEG); NITRITE,URINE NEG (NEG); SQUAMOUS EPITHELIAL CELL URINE 1 /hpf (0-5); URINE COLOR LIGHT-YELLOW (YELLW/STRAW); URINE LEUKOCYTE ESTERASE NEG (NEG)
--- NOTE | 2017-08-19 21:25 | HHI.HP ---
HPI Service [facility] Primary Care Physician Odessa Lion MD Admission Diagnosis abdominal pain, SOB, generalized weakness Diagnoses: (1) Generalized weakness Diagnosis: Principal (2) Pancytopenia Diagnosis: Principal (3) Dehydration Diagnosis: Principal (4) Pancreatitis Diagnosis: Principal Travel History International Travel<30 Days: No Contact w/Intl Traveler <30 Da: No Traveled to Known Affected Are: No History of Present Illness This is a 62-year-old male with PMH of Anxiety, Lupus, CAD, Hyperlipidemia, COPD , h/o CVA and Depression who was brought to the ER secondary to generalized weakness and weight loss. Patient is a poor historian, unable to provide much history. at bedside providing some history, I also spoke w/ Daughter via phone who relayed pt has had progressive weakness x3-4wks, in addition to lethargy and weight loss of approx 15lbs. Per pt he has not been seen by PCP or been evaluated for this. Denies pain, fever, chills, nausea, vomiting or diarrhea. On arrival, BP 104/76, HR 83, O2 sat 94% on RA, Afebrile. WBC 3.1, hemoglobin 12.0, platelets 142. Chemistry essentially unremarkable. CPK normal. Troponin negative. Lipase 549. INR 1.6. UA negative for UTI. CXR with marked hyperinflation. CTA Pulm negative for PE, emphysematous changes, scarring or atelectasis at lung bases. CT Abdomen/Pelvis no definite acute abnormality, paucity of fat which could make identification of edema difficult, subcentimeter hepatic mass likely cysts, atelectasis at lung bases, left adrenal myolipoma. Review of Systems Except as stated in HPI: all other systems reviewed are Neg ROS: 14 point review of systems otherwise negative. Past Family Social History Past Medical History PMH: Anxiety, Lupus, CAD, Hyperlipidemia, COPD, h/o CVA and Depression Past Surgical History PAST SURGICAL HISTORY: CABG, Cardiac Stent, Bilateral Inguinal Hernia Repair Allergies: Coded Allergies: Sulfa (Sulfonamide Antibiotics) (Unverified Allergy, Severe, SWELLING, 08/08) acetaminophen (Unverified Allergy, Severe, ALLERGIC TO BINDER - ITCHING, ) benazepril (Unverified Allergy, Severe, ANGIOEDEMA, 08/08/17) captopril (Unverified Allergy, Severe, ANGIOEDEMA, 08/08/17) codeine (Unverified Allergy, Severe, ALLERGIC TO BINDER - ITCHING, 08/08/17) enalaprilat (Unverified Allergy, Severe, ANGIOEDEMA, 08/08/17) fosinopril (Unverified Allergy, Severe, ANGIOEDEMA, 08/08/17) lisinopril (Unverified Allergy, Severe, ANGIOEDEMA, 08/08/17) methotrexate (Unverified Allergy, Severe, SWELLING, 08/08/17) quinapril (Unverified Allergy, Severe, ANGIOEDEMA, 08/08/17) *MDRO Multi-Drug Resistant Organism (Verified Allergy, Unknown, 08/08/17) MRSA Family History PAST FAMILY HISTORY: Reviewed. No h/o DM or CAD Social History PAST SOCIAL HISTORY: Negative for alcohol or drugs. History of tobacco, quit 2012. Physical Exam Vital Signs Vital Signs Date Time Temp Pulse Resp B/P (MAP) Pulse Ox O2 Delivery O2 Flow Rate FiO2 08/19/17 20:00 72 28 136/90 (105) 98 Nasal Cannula 4.00 08/19/17 19:00 74 34 128/90 (103) 99 Nasal Cannula 4.00 08/19/17 18:22 18 95 Room Air 08/19/17 18:09 85 18 120/77 (91) 100 Room Air 08/19/17 17:04 78 16 111/63 (79) 94 Nasal Cannula 2.00 08/19/17 14:47 98.1 83 16 104/76 (85) 94 Physical Exam PE: GENERAL: Thin, cachectic middle-aged black male in no acute distress. Family at bedside. HEENT: PERRLA, EOMI. No scleral icterus or conjunctival pallor. No lid lag or facial droop. CARDIOVASCULAR: Regular rate and rhythm. No obvious murmurs to auscultation. No chest tenderness to palpation. RESPIRATORY: No obvious rhonchi or wheezing. Clear to auscultation. Breath sounds equal bilaterally. GASTROINTESTINAL: Abdomen soft, non-tender, nondistended. BS normal. MUSCULOSKELETAL: Extremities without clubbing, cyanosis, or edema. No obvious deformities. NEUROLOGICAL: Awake, alert and oriented x4. No focal neurologic deficits. Moving both upper and lower extremities spontaneously. Laboratory Laboratory Tests Test 08/19/17 14:56 08/19/17 16:58 08/19/17 20:20 White Blood Count 3.1 Red Blood Count 4.54 Hemoglobin 12.0 Hematocrit 37.0 Mean Corpuscular Volume 81.5 Mean Corpuscular Hemoglobin 26.5 Mean Corpuscular Hemoglobin Concent 32.5 Red Cell Distribution Width 14.2 Platelet Count 142 Mean Platelet Volume 8.4 Neutrophils (%) (Auto) 70.6 Lymphocytes (%) (Auto) 20.6 Monocytes (%) (Auto) 8.4 Eosinophils (%) (Auto) 0.0 Basophils (%) (Auto) 0.4 Neutrophils # (Auto) 2.2 Lymphocytes # (Auto) 0.6 Monocytes # (Auto) 0.3 Eosinophils # (Auto) 0.0 Basophils # (Auto) 0.0 CBC Comment DIFF FINAL Differential Comment Blood Urea Nitrogen 46 Creatinine 0.97 Random Glucose 102 Total Protein 8.8 Albumin 2.8 Calcium Level 8.5 Alkaline Phosphatase 113 Aspartate Amino Transf (AST/SGOT) 121 Alanine Aminotransferase (ALT/SGPT) 36 Total Bilirubin 0.2 Sodium Level 134 Potassium Level 4.6 Chloride Level 103 Carbon Dioxide Level 23.4 Anion Gap 8 Estimat Glomerular Filtration Rate 95 Magnesium Level 2.4 Total Creatine Kinase 148 Creatine Kinase MB 0.9 Troponin I 0.04 Lipase 549 Prothrombin Time 15.7 Prothromb Time International Ratio 1.6 Activated Partial Thromboplast Time 55.1 D-Dimer Quantitative (PE/DVT) 4.29 Urine Color LIGHT-YELLOW Urine Turbidity CLEAR Urine pH 6.0 Urine Specific [place] 1.048 Urine Protein 30 Urine Glucose (UA) NEG Urine Ketones NEG Urine Occult Blood SMALL Urine Nitrite NEG Urine Bilirubin NEG Urine Urobilinogen LESS THAN 2.0 Urine Leukocyte Esterase NEG Urine RBC LESS THAN 1 Urine WBC LESS THAN 1 Urine Squamous Epithelial Cells 1 Microscopic Urinalysis Comment CATH-CULT NOT IND Result Diagram: 08/19/17 1456 08/19/17 1456 Caprini VTE Risk Assessment Caprini VTE Risk Assessment: No/Low Risk (score <= 1) Caprini Risk Assessment Model Point Value = 1 Point Value = 2 Point Value = 3 Point Value = 5 Age 41-60 Minor surgery BMI > 25 kg/m2 Swollen legs Varicose veins or History of unexplained or recurrent spontaneous Oral contraceptives or hormone replacement Sepsis (< 1 month) Serious lung disease, including pneumonia (< 1 month) Abnormal pulmonary function Acute myocardial infarction Congestive heart failure (< 1 month) History of inflammatory bowel disease Medical patient at bed rest Age 61-74 Arthroscopic surgery Major open surgery (> 45 min) Laparoscopic surgery (> 45 min) Malignancy Confined to bed (> 72 hours) Immobilizing plaster cast Central venous access Age >= 75 History of VTE Family history of VTE Factor V Leiden Prothrombin [id number] Lupus anticoagulant Anticardiolipin antibodies Elevated serum homocysteine Heparin-induced thrombocytopenia Other congenital or acquired thrombophilia Stroke (< 1 month) Elective arthroplasty Hip, pelvis, or leg fracture Acute spinal cord injury (< 1 month) Prophylaxis Regimen Total Risk Factor Score Risk Level Prophylaxis Regimen 0-1 Low Early ambulation 2 Moderate Order ONE of the following: *Sequential Compression Device (SCD) *Heparin 5000 units SQ BID 3-4 Higher Order ONE of the following medications: *Heparin 5000 units SQ TID *Enoxaparin/Lovenox 40 mg SQ daily (WT < 150 kg, CrCl > 30 mL/min) *Enoxaparin/Lovenox 30 mg SQ daily (WT < 150 kg, CrCl > 10-29 mL/min) *Enoxaparin/Lovenox 30 mg SQ BID (WT < 150 kg, CrCl > 30 mL/min) AND/OR *Sequential Compression Device (SCD) 5 or more Highest Order ONE of the following medications: *Heparin 5000 units SQ TID (Preferred with Epidurals) *Enoxaparin/Lovenox 40 mg SQ daily (WT < 150 kg, CrCl > 30 mL/min) *Enoxaparin/Lovenox 30 mg SQ daily (WT < 150 kg, CrCl > 10-29 mL/min) *Enoxaparin/Lovenox 30 mg SQ BID (WT < 150 kg, CrCl > 30 mL/min) AND *Sequential Compression Device (SCD) Assessment and Plan Problem List: (1) Generalized weakness ICD Code: R53.1 - Weakness Status: Acute (2) Dehydration ICD Code: E86.0 - Dehydration (3) Pancytopenia ICD Code: D61.818 - Other pancytopenia (4) Pancreatitis ICD Code: K85.90 - Acute pancreatitis without necrosis or infection, unspecified Status: Acute Assessment and Plan A/P: 1. Generalized Weakness: x3-4wks, progressive w/ increased lethargy, associated w/ 10-15lb unintentional weight loss, +anorexia, concern for underlying malignancy, CTA Pulm negative for PE or mass, CT Abd/Pelvis w/ no definite abnormality, subcentimeter hepatic mass, left adrenal myolipoma, images reviewed by me. PT for eval/tx. +malnutrition, Consult Distance Education Teacher for further recommendations. 2. Dehydration: BUN 46, creatinine normal, U/a negative for UTI, +decreased PO intake, IVF for hydration, repeat labs in am. 3. Pancytopenia: WBC 3.1, Hgb 12.0, Platelets 142, previously normal, concern for underlying malignancy in light of above symptoms. Will consult Hematology for further evaluation/possible BM biopsy 4. Pancreatitis: Lipase 549, CT Abd/Pelvis w/ no acute pancreatic abnormality , images reviewed by me, IVF, analgesics/antiemetics as needed 5. DVT Prophylaxis: SCD/Teds 6. Social work for d/c planning as needed. 7. Case discussed w/ ER physician at length, labs/records/imaging reviewed by me. Problem Qualifiers (1) Pancreatitis: Qualified Codes: K85.90 - Acute pancreatitis without necrosis or infection, unspecified Aissatou Banuelos MD Aug 19, 2017 21:25
[2017-08-19] MEDS ORDERED: MAGNESIUM HYDROXIDE SUSP 30 ML CUP PO PRN (21:30)
[2017-08-19] MEDS ORDERED: BISACODYL 10 MG SUPP RECTAL PRN (21:30)
[2017-08-19] MEDS ORDERED: LACTULOSE SYRUP 20 GM/30 ML CUP PO PRN (21:30)
[2017-08-19] MEDS ORDERED: SENNOSIDES 8.6 MG TAB PO PRN (21:30)
[2017-08-19] MEDS ORDERED: MORPHINE SULFATE 2 MG/ML SYRINGE IV PUSH PRN (21:30)
[2017-08-19] MEDS ORDERED: SODIUM CHLORIDE 0.9% FLUSH 10 ML FLUSH IV FLUSH PRN (21:30)
[2017-08-19] MEDS ORDERED: ONDANSETRON HCL 4 MG/2 ML VIAL IVP PRN (21:30)
[2017-08-19] MEDS: SODIUM CHLOR 0.9% 1000 ML INJ 1,000 ML IV SCH (22:07)
[2017-08-20] VITALS (7 sets, daily range): BP systolic 84–126; BP diastolic 60–85; PULSE 70–80; RESP 16–24; TEMP 97.4–98; O2SAT 94–100
[2017-08-20] MEDS: SODIUM CHLOR 0.9% 1000 ML INJ 1,000 ML IV SCH ×2 (07:19→21:52)
[2017-08-20] MEDS: DOCUSATE SODIUM 50 MG/SENNA 8.6 MG TAB PO SCH ×2 (09:00→21:00)
--- NOTE | 2017-08-20 09:10 | HHI.PR ---
Subjective Remarks in no acute distress. cachectic. has mild generalized abdominal pain. feels weak. Objective Vitals Vital Signs Date Time Temp Pulse Resp B/P (MAP) Pulse Ox O2 Delivery O2 Flow Rate FiO2 08/20/17 08:35 97.6 80 16 123/83 (96) 96 08/20/17 07:33 08/20/17 07:15 78 18 121/76 (91) 96 Nasal Cannula 4.00 08/20/17 04:00 72 24 126/85 (99) 98 Nasal Cannula 4.00 08/20/17 00:00 70 24 118/77 (91) 98 Nasal Cannula 4.00 08/19/17 20:00 72 28 136/90 (105) 98 Nasal Cannula 4.00 08/19/17 19:00 74 34 128/90 (103) 99 Nasal Cannula 4.00 08/19/17 18:22 18 95 Room Air 08/19/17 18:09 85 18 120/77 (91) 100 Room Air 08/19/17 17:04 78 16 111/63 (79) 94 Nasal Cannula 2.00 08/19/17 14:47 98.1 83 16 104/76 (85) 94 I/O 08/19/17 08/19/17 08/19/17 08/20/17 08/20/17 08/20/17 07:00 15:00 23:00 07:00 15:00 23:00 Intake Total 500 ml Balance 500 ml Intake IV Total 500 ml Result Diagram: 08/19/17 1456 08/19/17 1456 Imaging Last Impressions Chest X-Ray 08/19/17 0000 Signed Impressions: Service Date/Time: Saturday, August 19, 2017 15:37 - CONCLUSION: Marked hyperinflation Foster Dobbs MD FACR CT Angiography 08/19/17 0000 Signed Impressions: Service Date/Time: Saturday, August 19, 2017 18:32 - CONCLUSION: 1. No pulmonary embolus. 2. Emphysematous change. 3. Suspected scarring or atelectasis at the lung bases. Dm Harding MD Abdomen/Pelvis CT 08/19/17 0000 Signed Impressions: Service Date/Time: Saturday, August 19, 2017 18:32 - CONCLUSION: 1. No definite acute abnormality seen, however, there is a paucity of fat which would make identification of edema difficult. 2. Subcentimeter hepatic mass. This likely are cysts and incidental finding such as a cyst or hemangioma statistically. 3. Atelectasis or scarring at the lung bases. 4. Spondylolisthesis of the L5-S1 level. 5. Left adrenal myelolipoma. Dm Harding MD Objective Remarks GENERAL: cachectic, in no apparent distress. CARDIOVASCULAR: Regular rate and regular rhythm without murmurs, gallops, or rubs. RESPIRATORY: Clear to auscultation. Breath sounds equal bilaterally. No wheezes , rales, or rhonchi. GASTROINTESTINAL: Abdomen soft, non-tender, nondistended. Normal, active bowel sounds MUSCULOSKELETAL: Extremities without clubbing, cyanosis, or edema. NEURO: Alert & Oriented x4 to person, place, time, situation. Moves all ext x4 Medications and IVs Inpatient Medications Bisacodyl (Dulcolax Supp) 10 mg DAILY PRN RECTAL SEVERE CONSITIPATION; Start at 21:30 Hydroxychloroquine Sulfate (Plaquenil) 200 mg BID PO ; Start 08/20/17 at 09:00 Lactulose (Lactulose Liq) 30 ml DAILY PRN PO SEVERE CONSITIPATION; Start at 21:30 Magnesium Hydroxide (Milk Of Magnesia Liq) 30 ml Q12H PRN PO Mild constipation ; Start 08/19/17 at 21:30 Morphine Sulfate (Morphine Inj) 1 mg Q3H PRN IV PUSH Pain 6-10; Start 08/19/17 at 21:30 Ondansetron HCl (Zofran Inj) 4 mg Q6H PRN IVP NAUSEA OR VOMITING; Start at 21:30 Senna/Docusate Sodium (Alannah-Colace) 1 tab BID PO ; Start 08/20/17 at 09:00 Sennosides (Senokot) 17.2 mg Q12H PRN PO Moderate constipation; Start 08/19/17 at 21:30 Sodium Chloride (NS Flush) 2 ml BID IV FLUSH ; Start 08/20/17 at 09:00 Tiotropium [place] (Spiriva Inh) 18 mcg DAILY INH ; Start 08/20/17 at 09:00 A/P Problem List: (1) Generalized weakness ICD Code: R53.1 - Weakness Status: Acute (2) Dehydration ICD Code: E86.0 - Dehydration (3) Pancytopenia ICD Code: D61.818 - Other pancytopenia (4) Pancreatitis ICD Code: K85.90 - Acute pancreatitis without necrosis or infection, unspecified Status: Acute Assessment and Plan 1. Generalized Weakness: x3-4wks, associated w/ 10-15lb unintentional weight loss, +anorexia, concern for underlying malignancy, CTA Pulm negative for PE or mass, CT Abd/Pelvis w/ no definite abnormality, subcentimeter hepatic mass, left adrenal myolipoma, images reviewed by me. PT for eval/tx. +malnutrition, Consulted [employer] for further recommendations. 2. Dehydration: IVF for hydration, monitor. 3. Pancytopenia: WBC 3.1, Hgb 12.0, Platelets 142, previously normal, concern for underlying malignancy in light of above symptoms. consulted Hematology for further evaluation/possible BM biopsy 4. Pancreatitis: Lipase 549, CT Abd/Pelvis w/ no acute pancreatic abnormality , images reviewed by me, IVF, analgesics/antiemetics as needed 5.lupus; resume Plaquenil. 6.hypertension; BP stable for now- continue to monitor. 7. DVT Prophylaxis: SCD/Teds Problem Qualifiers (1) Pancreatitis: Qualified Codes: K85.90 - Acute pancreatitis without necrosis or infection, unspecified Rancho Mandujano MD Aug 20, 2017 09:10
[2017-08-20 09:53] LABS: AUTOMATED NEUTROPHIL # 1.8 TH/MM3 (1.8-7.7); BASOPHIL % 0.7 % (0.0-2.0); EOSINOPHIL % 0.1 % (0.0-4.0); HEMATOCRIT 41.8 % (39.0-51.0); HEMOGLOBIN 13.6 GM/DL (13.0-17.0); LYMPHOCYTE # 0.4 TH/MM3 (1.0-4.8); MEAN CORPUSCULAR HEMOGLOBIN 26.6 PG (27.0-34.0); MEAN CORPUSCULAR HGB CONC 32.4 % (32.0-36.0); MONO % 4.2 % (0.0-8.0); MONOCYTE # 0.1 TH/MM3 (0-0.9); PLATELET COUNT 139 TH/MM3 (150-450); RED CELL DISTRIBUTION WIDTH 14.2 % (11.6-17.2); WHITE BLOOD COUNT 2.4 TH/MM3 (4.0-11.0)
[2017-08-20 10:03] LABS: INTERNATIONAL NORMALIZED RATIO 1.5 RATIO; PROTHROMBIN TIME - PATIENT 15.4 SEC (9.8-11.6)
[2017-08-20 10:15] LABS: ALKALINE PHOSPHATASE 116 U/L (45-117); TOTAL BILIRUBIN ADULT 0.3 MG/DL (0.2-1.0); TOTAL PROTEIN 9.1 GM/DL (6.4-8.2)
--- NOTE | 2017-08-20 10:34 | PD.CONS ---
History of Present Illness Service Hematology/Oncology Consult Requested By The Hospitalist Service Reason for Consult Leukopenia mostly related to lymphopenia. Thrombocytopenia. Cachexia Primary Care Physician Odessa Lion MD Diagnoses: History of Present Illness Chief complaint: Generalized weakness Weight loss Inability to stand due to weakness. History of presenting illness: Mr. Allen is a 62-year-old male was brought into the emergency department last night by his daughters. The patient had been losing weight, had been increasingly frail and per the patient was not able to stand on his own or walk even a few steps. Per the patient he has lost about 10 pounds over the past 3 months but had been gradually losing weight for the past 2 years. He tells me he has little to no interest in food and if he tries to eat or drink anything he gets full very rapidly. Upon presentation to the emergency department the patient's weight was noted to be 101 pounds, he is 5 feet 6 inches tall which makes his BMI 16.3. The patient was noted on routine blood work to have mild leukopenia, his neutrophil count was noted to be normal his lymphocyte count was noted to be low. He was mildly anemic with a hemoglobin of close to 13 g/dL and had mild thrombocytopenia as well. Patient's liver function enzymes are also abnormal with an elevated AST at greater than 120 with a normal ALT, lipase was elevated as well. He reports being a heavy drinker in the past but has not drank in several years, his daughters at bedside verify this. CT imaging of the chest abdomen pelvis revealed no evidence of acute findings; specifically he was found to have no evidence of pulmonary emboli no evidence of abnormal masses or other lesions to explain his current symptoms. The liver did have a lesion but this was thought to be most consistent with either a hemangioma or a benign cyst. The oncology/hematology service has been asked to come see him given his severe malnourishment, weight loss, failure to thrive as well as lymphocytopenia associated with mild thrombocytopenia. Review of Systems Constitutional: COMPLAINS OF: Fatigue, Weight loss, Chills, Dizziness, Change in appetite (Loss of appetite), Night Sweats (Mild non-drenching night sweats), DENIES: Diaphoretic episodes, Fever, Weight gain Endocrine: COMPLAINS OF: Heat/cold intolerance, DENIES: Polydipsia, Polyuria, Polyphagia Eyes: COMPLAINS OF: Blurred vision, DENIES: Diplopia, Eye inflammation, Eye pain, Vision loss, Photosensitivity, Double Vision Ears, nose, mouth, throat: DENIES: Tinnitus, Hearing loss, Vertigo, Nasal discharge, Oral lesions, Throat pain, Hoarseness, Ear Pain, Running Nose, Epistaxis, Sinus Pain, Toothache, Odynophagia Respiratory: COMPLAINS OF: Cough, Shortness of breath, DENIES: Apneas, Snoring , Wheezing, Hemoptysis, Sputum production Cardiovascular: COMPLAINS OF: Dyspnea on Exertion, DENIES: Chest pain, Palpitations, Syncope, PND, Lower Extremity Edema, Orthopnea, Claudication Gastrointestinal: COMPLAINS OF: Difficulty Swallowing, Anorexia, DENIES: Abdominal pain, Black stools, Bloody stools, Constipation, Diarrhea, Nausea, Vomiting Genitourinary: DENIES: Sexual dysfunction, Urinary frequency, Urinary incontinence, Urgency, Hematuria, Dysuria, Nocturia, Penile Discharge, Testicular Pain, Testicular Swelling Musculoskeletal: COMPLAINS OF: Joint pain, Muscle aches, Stiffness, Joint Swelling, Back pain, Neck pain Integumentary: DENIES: Abnormal pigmentation, Nail changes, Pruritus, Rash Hematologic/lymphatic: DENIES: Bruising, Lymphadenopathy Immunologic/allergic: DENIES: Eczema, Urticaria Neurologic: COMPLAINS OF: Poor Balance, DENIES: Abnormal gait, Headache, Localized weakness, Paresthesias, Seizures, Speech Problems, Tremor Psychiatric: COMPLAINS OF: Anxiety, Confusion, DENIES: Mood changes, Depression , Hallucinations, Agitation, Suicidal Ideation, Homicidal Ideation, Delusions Except as stated in HPI: all other systems reviewed are Neg Past Family Social History Allergies: Coded Allergies: Sulfa (Sulfonamide Antibiotics) (Unverified Allergy, Severe, SWELLING, 08/08) acetaminophen (Unverified Allergy, Severe, ALLERGIC TO BINDER - ITCHING, ) benazepril (Unverified Allergy, Severe, ANGIOEDEMA, 08/08/17) captopril (Unverified Allergy, Severe, ANGIOEDEMA, 08/08/17) codeine (Unverified Allergy, Severe, ALLERGIC TO BINDER - ITCHING, 08/08/17) enalaprilat (Unverified Allergy, Severe, ANGIOEDEMA, 08/08/17) fosinopril (Unverified Allergy, Severe, ANGIOEDEMA, 08/08/17) lisinopril (Unverified Allergy, Severe, ANGIOEDEMA, 08/08/17) methotrexate (Unverified Allergy, Severe, SWELLING, 08/08/17) quinapril (Unverified Allergy, Severe, ANGIOEDEMA, 08/08/17) *MDRO Multi-Drug Resistant Organism (Verified Allergy, Unknown, 08/08/17) MRSA Past Medical History Adult failure to thrive. Systemic lupus erythematosus. Coronary artery disease Previous history of tobaccoism COPD Previous history of alcohol abuse Previous history of recreational drug use. Past Surgical History History of 5 vessel coronary artery bypass graft surgery in 2009. Inguinal hernia repair about 1.5 years ago. Active Ordered Medications Current inpatient medications: Normal saline 100 cc/h Dulcolax 10 mg suppository as needed for severe constipation Plaquenil 200 mg p.o. twice daily Lactulose 30 mL p.o. daily as needed for severe constipation Milk of magnesia 30 mL p.o. every 12 hours Morphine sulfate 1 mg IV every 3 hours as needed for severe pain Zofran 4 mg IV every 6 hours needed for nausea and vomiting Spiriva 18 mcg inhaled daily. Family History No known oncologic diagnoses in the family. Social History Patient lives at home with his girlfriend. He tells me he has 5 adult children , 2 of whom are in the room with him right now. He is originally from [place], previously worked as a construction controller now disabled. He reports smoking heavily in the past but has not smoked in some time now. He also reports having previously been a drinker but has not drank in several years also. He does admit to recreational drug abuse in the past ( including crack cocaine). Physical Exam Vital Signs Vital Signs Date Time Temp Pulse Resp B/P (MAP) Pulse Ox O2 Delivery O2 Flow Rate FiO2 08/20/17 08:35 97.6 80 16 123/83 (96) 96 08/20/17 07:33 08/20/17 07:15 78 18 121/76 (91) 96 Nasal Cannula 4.00 08/20/17 04:00 72 24 126/85 (99) 98 Nasal Cannula 4.00 08/20/17 00:00 70 24 118/77 (91) 98 Nasal Cannula 4.00 08/19/17 20:00 72 28 136/90 (105) 98 Nasal Cannula 4.00 08/19/17 19:00 74 34 128/90 (103) 99 Nasal Cannula 4.00 08/19/17 18:22 18 95 Room Air 08/19/17 18:09 85 18 120/77 (91) 100 Room Air 08/19/17 17:04 78 16 111/63 (79) 94 Nasal Cannula 2.00 08/19/17 14:47 98.1 83 16 104/76 (85) 94 Physical Exam GENERAL: Male laying in bed. He is cachectic, chronically ill-appearing and very frail. SKIN: Scars on his scalp which are hypopigmented. HEAD: Atraumatic. Normocephalic. No temporal or scalp tenderness. Temporal muscle wasting EYES: Pupils equal round and reactive. Extraocular motions intact. No scleral icterus. No injection or drainage. ENT: Nose without bleeding, purulent drainage or septal hematoma. Throat without erythema, tonsillar hypertrophy or exudate. Uvula midline. Airway patent. NECK: Trachea midline. No JVD or lymphadenopathy. Supple, nontender, no meningeal signs. CARDIOVASCULAR: Regular rate and rhythm without murmurs, gallops, or rubs. RESPIRATORY: Clear to auscultation. Breath sounds equal bilaterally. No wheezes , rales, or rhonchi. GASTROINTESTINAL: Thin/cachectic abdomen, no organ enlargement noted. No inguinal lymphadenopathy MUSCULOSKELETAL: Generalized muscle wasting and atrophy. Deformities of the hands consistent with SLE/rheumatoid arthritis. NEUROLOGICAL: Awake and alert. Cranial nerves II through XII intact. Motor and sensory grossly within normal limits. Five out of 5 muscle strength in all muscle groups. Normal speech. Laboratory Laboratory Tests Test 08/19/17 14:56 08/19/17 16:58 08/19/17 20:20 08/20/17 09:37 White Blood Count 3.1 2.4 Red Blood Count 4.54 5.10 Hemoglobin 12.0 13.6 Hematocrit 37.0 41.8 Mean Corpuscular Volume 81.5 82.0 Mean Corpuscular Hemoglobin 26.5 26.6 Mean Corpuscular Hemoglobin Concent 32.5 32.4 Red Cell Distribution Width 14.2 14.2 Platelet Count 142 139 Mean Platelet Volume 8.4 8.0 Neutrophils (%) (Auto) 70.6 78.0 Lymphocytes (%) (Auto) 20.6 17.0 Monocytes (%) (Auto) 8.4 4.2 Eosinophils (%) (Auto) 0.0 0.1 Basophils (%) (Auto) 0.4 0.7 Neutrophils # (Auto) 2.2 1.8 Lymphocytes # (Auto) 0.6 0.4 Monocytes # (Auto) 0.3 0.1 Eosinophils # (Auto) 0.0 0.0 Basophils # (Auto) 0.0 0.0 CBC Comment DIFF FINAL DIFF FINAL Differential Comment Blood Urea Nitrogen 46 Creatinine 0.97 Random Glucose 102 Total Protein 8.8 9.1 Albumin 2.8 Calcium Level 8.5 Alkaline Phosphatase 113 116 Aspartate Amino Transf (AST/SGOT) 121 Alanine Aminotransferase (ALT/SGPT) 36 Total Bilirubin 0.2 0.3 Sodium Level 134 Potassium Level 4.6 Chloride Level 103 Carbon Dioxide Level 23.4 Anion Gap 8 Estimat Glomerular Filtration Rate 95 Magnesium Level 2.4 Total Creatine Kinase 148 Creatine Kinase MB 0.9 Troponin I 0.04 Lipase 549 Prothrombin Time 15.7 15.4 Prothromb Time International Ratio 1.6 1.5 Activated Partial Thromboplast Time 55.1 D-Dimer Quantitative (PE/DVT) 4.29 Urine Color LIGHT-YELLOW Urine Turbidity CLEAR Urine pH 6.0 Urine Specific [place] 1.048 Urine Protein 30 Urine Glucose (UA) NEG Urine Ketones NEG Urine Occult Blood SMALL Urine Nitrite NEG Urine Bilirubin NEG Urine Urobilinogen LESS THAN 2.0 Urine Leukocyte Esterase NEG Urine RBC LESS THAN 1 Urine WBC LESS THAN 1 Urine Squamous Epithelial Cells 1 Microscopic Urinalysis Comment CATH-CULT NOT IND Result Diagram: 08/20/17 0937 08/19/[address] scan of the chest with IV contrast dated 08/19/2017: No evidence of pulmonary embolus. Emphysematous changes. Suspected scarring or atelectasis of the lung bases. CT scan:Abdomen pelvis with IV contrast indicates: 1. No definite acute abnormalities seen. There is paucity of fat which would make identification of edema difficult. 2. Subcentimeter hepatic mass, likely represents cyst or incidental finding such as a hemangioma. 3. Atelectasis or scarring of the lung bases. 4. Spondylolisthesis L5-S1. 5. Left adrenal myolipoma. Assessment and Plan Assessment and Plan 62-year-old male with cachexia presenting with generalized weakness, failure to thrive and inability to even sit up much less ambulate on his own Mr. Allen has a BMI of 16.3 and his daughter's report he has been gradually losing weight over the past 1 and half years. The patient does have a history of systemic lupus erythematosus for which she has been on treatment with Plaquenil. Additionally he has a history of COPD, coronary artery disease and previous history of tobaccoism. The hematology/oncology service has been asked to see him due to abnormal blood counts specifically leukopenia mostly driven by a lymphocytopenia, at admission he also had a mild anemia which has since resolved and he has persistent mild thrombus cytopenia. The patient has abnormal liver enzymes as well though on imaging his liver appears to be essentially within normal limits. The patient does report high risk behavior in the past including heavy alcohol abuse and recreational drug use. He does not have hepatitis studies on record. Additional subtle abnormalities include low albumin level however elevated total protein level. Plan: 1. Lymphocytopenia: Request folic acid and vitamin B12 levels, request HIV and hepatitis screen as well. 2. Elevated total protein level: Obtain serum protein electro pheresis to rule out an underlying plasma cell disorder. 3. Obtain PSA screen. 4. CRP and ESR levels also ordered. The oncology service will follow with you. Milo Bryan MD Aug 20, 2017 10:34
[2017-08-20 10:40] LABS: ALBUMIN 2.8 GM/DL (3.4-5.0); ALT (GPT) 36 U/L (12-78); AST (GOT) 119 U/L (15-37); BLOOD UREA NITROGEN 30 MG/DL (7-18); CALCIUM 8.8 MG/DL (8.5-10.1); CHLORIDE 105 MEQ/L (98-107); CREATININE 0.76 MG/DL (0.60-1.30); GLOMERULAR FILTRATION RATE 126 ML/MIN (>89); GLUCOSE,RANDOM 96 MG/DL (74-106); SODIUM (NA) 136 MEQ/L (136-145)
[2017-08-20] MEDS: SODIUM CHLORIDE 0.9% FLUSH 10 ML FLUSH IV FLUSH SCH ×2 (10:59→21:00)
[2017-08-20] MEDS: TIOTROPIUM BROMIDE 18 MCG INH INH SCH (10:59)
[2017-08-20] MEDS: HYDROXYCHLOROQUINE SULFATE 200 MG TAB PO SCH ×2 (10:59→21:51)
[2017-08-20 13:16] LABS: C-REACTIVE PROTEIN 1.7 MG/DL (0.00-0.30)
[2017-08-20] MEDS ORDERED: ALPRAZolam 1 MG TAB PO PRN (16:00)
[2017-08-20] MEDS ORDERED: ACETAMINOPHEN/HYDROcodone 325 MG/10 MG TAB PO PRN (16:00)
--- NOTE | 2017-08-20 18:21 | EKG ---
Date Performed: 08/19/2017 Time Performed: 15:01:33 PTAGE: 62 years EKG: Sinus rhythm LEFT AXIS DEVIATION VOLTAGE CRITERIA FOR LVH POOR R WAVE PROGRESSION AND CANNOT EXCLUDE ANTEROSEPTAL INFARCT Since the previous tracing, no significant change noted ABNORMAL ECG NO PREVIOUS TRACING DOCTOR: Eladio Sparrow Interpretating Date/Time 08/20/2017 18:21:16
[2017-08-21] VITALS: BP 112/70; PULSE 78; RESP 22; TEMP 100.3; O2SAT 97
[2017-08-21 04:00] VITALS: PULSE 52
[2017-08-21] MEDS: SODIUM CHLOR 0.9% 1000 ML INJ 1,000 ML IV SCH ×2 (04:39→13:19)
[2017-08-21 05:11] VITALS: BP 108/74; PULSE 77; RESP 20; TEMP 97.7; O2SAT 98
[2017-08-21] MEDS: DOCUSATE SODIUM 50 MG/SENNA 8.6 MG TAB PO SCH ×2 (09:00→21:00)
[2017-08-21] MEDS: TIOTROPIUM BROMIDE 18 MCG INH INH SCH (09:02)
[2017-08-21] MEDS: SODIUM CHLORIDE 0.9% FLUSH 10 ML FLUSH IV FLUSH SCH ×2 (09:02→21:00)
[2017-08-21] MEDS: HYDROXYCHLOROQUINE SULFATE 200 MG TAB PO SCH ×2 (09:02→21:54)
[2017-08-21] MEDS ORDERED: INFLUENZA VIRUS VACCINE (QUADRIVALENT) 0.5 ML SYR IM ONE (10:00)
--- NOTE | 2017-08-21 10:49 | PD.ONC.PN ---
Subjective Subjective Remarks Tmax 100.3 overnight. Patient resting in room with daughter. Ate breakfast this AM. No complaints. Daughter says he is a bit more active/energetic since being in the hospital. Objective Data Date Time Temp Pulse Resp B/P (MAP) Pulse Ox O2 Delivery O2 Flow Rate FiO2 08/21/17 05:11 97.7 77 20 108/74 (85) 98 08/21/17 04:00 52 08/21/17 00:00 100.3 78 22 112/70 (84) 97 08/20/17 20:00 98.0 75 20 95/71 (79) 94 08/20/17 15:34 97.4 74 16 84/60 (68) 100 08/20/17 12:30 97.7 78 16 118/85 (96) 96 08/20/17 11:00 16 08/21/17 08/21/17 08/21/17 07:00 15:00 23:00 Intake Total 120 ml Output Total 1000 ml Balance -880 ml Result Diagram: 08/20/1793608/20/17936 Laboratory Results Laboratory Tests Test 08/20/17 12:03 C-Reactive Protein 1.70 MG/DL Total Protein 8.8 GM/DL Prostate Specific Antigen 0.48 NG/ML Vitamin B12 Level 802 PG/ML Folate 7.0 NG/ML HIV (1&2) Ab and P24 Ag, 4th Gener NONREACTIVE Administered Medications Medications (Trade) Dose Ordered Sig/Abdirahman Route PRN Reason Start Time Stop Time Status Last Admin Dose Admin Sodium Chloride 1,000 ml @ 100 mls/hr Q10H IV 08/19/17 21:19 08/21/17 04:39 Sodium Chloride (NS Flush) 2 ml BID IV FLUSH 08/20/17 09:00 08/21/17 09:02 Morphine Sulfate (Morphine Inj) 1 mg Q3H PRN IV PUSH BREAKTHROUGH PAIN 08/19/17 21:30 08/20/17 10:37 Hydroxychloroquine Sulfate (Plaquenil) 200 mg BID PO 08/20/17 09:00 08/21/17 09:02 Tiotropium [place] (Spiriva Inh) 18 mcg DAILY INH 08/20/17 09:00 08/21/17 09:02 Objective Remarks GENERAL: Thin frail male, lying supine in bed. On 2L O2 via NC SKIN: Warm and dry. HEAD: Normocephalic. EYES: No injection or drainage. NECK: Supple, trachea midline. CARDIOVASCULAR: Regular rate and rhythm RESPIRATORY: Breath sounds equal bilaterally. No accessory muscle use. GASTROINTESTINAL: Abdomen soft, non-tender, nondistended. EXTREMITIES: No cyanosis NEUROLOGICAL: No obvious focal deficit. Assessment/Plan Assessment 62y/o male admitted with generalized weakness, failure to thrive. Hematology consulted for lymphocytopenia h/o SLE-->on Plaquenil --h/o COPD, CAD, tobaccoism. Plan 1. Lymphocytopenia: vitamin B12 level WNL, HIV and hepatitis screen both negative. CT C/A/P show no malignancy; CRP and ESR both elevated SPEP is pending. unclear etiology. 2. if patient is discharged prior to SPEP returning, we will arrange follow up in clinic for review of labs. 3. monitor CBC, continue supportive care Edna Styles Aug 21, 2017 10:49
[2017-08-21 11:43] VITALS: BP 120/62; PULSE 88; RESP 20; TEMP 98.2; O2SAT 96
--- NOTE | 2017-08-21 11:57 | HHI.PR ---
Subjective Remarks in no acute distress. denies pain. no new complaints. Objective Vitals Vital Signs Date Time Temp Pulse Resp B/P (MAP) Pulse Ox O2 Delivery O2 Flow Rate FiO2 08/21/17 11:43 98.2 88 20 120/62 (81) 96 08/21/17 05:11 97.7 77 20 108/74 (85) 98 08/21/17 04:00 52 08/21/17 00:00 100.3 78 22 112/70 (84) 97 08/20/17 20:00 98.0 75 20 95/71 (79) 94 08/20/17 15:34 97.4 74 16 84/60 (68) 100 08/20/17 12:30 97.7 78 16 118/85 (96) 96 I/O 08/20/17 08/20/17 08/20/17 08/21/17 08/21/17 08/21/17 07:00 15:00 23:00 07:00 15:00 23:00 Intake Total 240 ml 120 ml Output Total 1000 ml Balance 240 ml -880 ml Intake Oral 240 ml 120 ml Output Urine Total 1000 ml Result Diagram: 08/20/17 0937 08/20/17 0937 Imaging Last Impressions Chest X-Ray 08/19/17 0000 Signed Impressions: Service Date/Time: Saturday, August 19, 2017 15:37 - CONCLUSION: Marked hyperinflation Foster Dobbs MD FACR CT Angiography 08/19/17 0000 Signed Impressions: Service Date/Time: Saturday, August 19, 2017 18:32 - CONCLUSION: 1. No pulmonary embolus. 2. Emphysematous change. 3. Suspected scarring or atelectasis at the lung bases. Dm Harding MD Abdomen/Pelvis CT 08/19/17 0000 Signed Impressions: Service Date/Time: Saturday, August 19, 2017 18:32 - CONCLUSION: 1. No definite acute abnormality seen, however, there is a paucity of fat which would make identification of edema difficult. 2. Subcentimeter hepatic mass. This likely are cysts and incidental finding such as a cyst or hemangioma statistically. 3. Atelectasis or scarring at the lung bases. 4. Spondylolisthesis of the L5-S1 level. 5. Left adrenal myelolipoma. Dm Harding MD Objective Remarks GENERAL: cachectic, in no apparent distress. CARDIOVASCULAR: Regular rate and regular rhythm without murmurs, gallops, or rubs. RESPIRATORY: Clear to auscultation. Breath sounds equal bilaterally. No wheezes , rales, or rhonchi. GASTROINTESTINAL: Abdomen soft, non-tender, nondistended. Normal, active bowel sounds MUSCULOSKELETAL: Extremities without clubbing, cyanosis, or edema. NEURO: Alert & Oriented x4 to person, place, time, situation. Moves all ext x4 Medications and IVs Inpatient Medications Acetaminophen/ Hydrocodone Bitart ([place] 10-325 Mg) 1 tab Q6H PRN PO PAIN 6-10 ; Start 08/20/17 at 16:00 Alprazolam (Xanax) 2 mg Q8H PRN PO ANXIETY; Start 08/20/17 at 16:00 Bisacodyl (Dulcolax Supp) 10 mg DAILY PRN RECTAL SEVERE CONSITIPATION; Start at 21:30 Hydroxychloroquine Sulfate (Plaquenil) 200 mg BID PO Last administered on at 09:02; Start 08/20/17 at 09:00 Influenza Virus Vaccine (Flu (Quadrivalent) Vaccine Inj) 0.5 ml ONCE ONCE IM ; Start 08/21/17 at 10:00; Stop 08/21/17 at 10:01; Status DC Lactulose (Lactulose Liq) 30 ml DAILY PRN PO SEVERE CONSITIPATION; Start at 21:30 Magnesium Hydroxide (Milk Of Magnesia Liq) 30 ml Q12H PRN PO Mild constipation ; Start 08/19/17 at 21:30 Morphine Sulfate (Morphine Inj) 1 mg Q3H PRN IV PUSH BREAKTHROUGH PAIN Last administered on 08/20/17at 10:37; Start 08/19/17 at 21:30 Ondansetron HCl (Zofran Inj) 4 mg Q6H PRN IVP NAUSEA OR VOMITING; Start at 21:30 Senna/Docusate Sodium (Alannah-Colace) 1 tab BID PO ; Start 08/20/17 at 09:00 Sennosides (Senokot) 17.2 mg Q12H PRN PO Moderate constipation; Start 08/19/17 at 21:30 Sodium Chloride (NS Flush) 2 ml BID IV FLUSH Last administered on 08/21/17at 09: 02; Start 08/20/17 at 09:00 Tiotropium [place] (Spiriva Inh) 18 mcg DAILY INH Last administered on at 09:02; Start 08/20/17 at 09:00 A/P Problem List: (1) Generalized weakness ICD Code: R53.1 - Weakness Status: Acute (2) Dehydration ICD Code: E86.0 - Dehydration (3) Pancytopenia ICD Code: D61.818 - Other pancytopenia (4) Pancreatitis ICD Code: K85.90 - Acute pancreatitis without necrosis or infection, unspecified Status: Acute Assessment and Plan 1. Generalized Weakness/severe malnutrition: x3-4wks, associated w/ 10-15lb unintentional weight loss, +anorexia, concern for underlying malignancy. CTA Pulm negative for PE or mass, CT Abd/Pelvis w/ no definite abnormality , subcentimeter hepatic mass, left adrenal myolipoma PT for eval/tx. + malnutrition, Consulted [facility] for further recommendations. 2. Dehydration: IVF for hydration, monitor. 3. Pancytopenia: concern for underlying malignancy in light of above symptoms. Hematology evaluation appreciated; SPEP pending- 4. Pancreatitis: Lipase 549, CT Abd/Pelvis w/ no acute pancreatic abnormality , images reviewed by me, IVF, analgesics/antiemetics as needed 5.lupus; resumed Plaquenil. 6.hypertension; BP stable for now- continue to monitor. 7. DVT Prophylaxis: SCD/Teds Problem Qualifiers (1) Pancreatitis: Qualified Codes: K85.90 - Acute pancreatitis without necrosis or infection, unspecified Rancho Mandujano MD Aug 21, 2017 11:57
[2017-08-21 12:32] LABS: AUTOMATED NEUTROPHIL # 2.3 TH/MM3 (1.8-7.7); BASOPHIL % 0.1 % (0.0-2.0); HEMATOCRIT 34.8 % (39.0-51.0); HEMOGLOBIN 11.4 GM/DL (13.0-17.0); LYMPH % 15.1 % (9.0-44.0); LYMPHOCYTE # 0.4 TH/MM3 (1.0-4.8); MEAN CELL VOLUME 81.4 FL (80.0-100.0); MEAN CORPUSCULAR HEMOGLOBIN 26.7 PG (27.0-34.0); MEAN CORPUSCULAR HGB CONC 32.8 % (32.0-36.0); MEAN PLATELET VOLUME 8.6 FL (7.0-11.0); MONO % 3.3 % (0.0-8.0); MONOCYTE # 0.1 TH/MM3 (0-0.9); NEUT % 81.5 % (16.0-70.0); PLATELET COUNT 124 TH/MM3 (150-450); RED BLOOD COUNT 4.27 MIL/MM3 (4.50-5.90); WHITE BLOOD COUNT 2.9 TH/MM3 (4.0-11.0)
[2017-08-21 12:48] LABS: INTERNATIONAL NORMALIZED RATIO 1.4 RATIO
[2017-08-21 13:11] LABS: ALBUMIN 2.3 GM/DL (3.4-5.0); ALKALINE PHOSPHATASE 99 U/L (45-117); ALT (GPT) 44 U/L (12-78); AST (GOT) 135 U/L (15-37); BICARBONATE 24.1 MEQ/L (21.0-32.0); BLOOD UREA NITROGEN 20 MG/DL (7-18); CALCIUM 8.3 MG/DL (8.5-10.1); CHLORIDE 107 MEQ/L (98-107); CREATININE 0.55 MG/DL (0.60-1.30); GLOMERULAR FILTRATION RATE 183 ML/MIN (>89); GLUCOSE,RANDOM 83 MG/DL (74-106); SODIUM (NA) 138 MEQ/L (136-145); TOTAL BILIRUBIN ADULT 0.2 MG/DL (0.2-1.0); TOTAL PROTEIN 7.7 GM/DL (6.4-8.2)
[2017-08-21 21:52] VITALS: BP 108/64; PULSE 64; RESP 16; TEMP 97.6; O2SAT 98
[2017-08-22 00:02] VITALS: BP 128/71; PULSE 68; RESP 14; TEMP 98.3; O2SAT 95
[2017-08-22] MEDS: SODIUM CHLOR 0.9% 1000 ML INJ 1,000 ML IV SCH ×2 (00:02→09:14)
[2017-08-22 05:26] VITALS: BP 105/64; PULSE 84; RESP 17; TEMP 98.8; O2SAT 93
[2017-08-22 08:45] VITALS: BP 95/61; PULSE 72; RESP 16; TEMP 97.7; O2SAT 95
[2017-08-22] MEDS: DOCUSATE SODIUM 50 MG/SENNA 8.6 MG TAB PO SCH (09:00)
[2017-08-22] MEDS: HYDROXYCHLOROQUINE SULFATE 200 MG TAB PO SCH (09:13)
[2017-08-22] MEDS: TIOTROPIUM BROMIDE 18 MCG INH INH SCH (09:13)
[2017-08-22] MEDS: SODIUM CHLORIDE 0.9% FLUSH 10 ML FLUSH IV FLUSH SCH (09:14)
--- NOTE | 2017-08-22 10:17 | HHI.PR ---
Subjective Remarks in no acute distress. has mild generalized pain. no fever. no new complaints. family at the bedside. Objective Vitals Vital Signs Date Time Temp Pulse Resp B/P (MAP) Pulse Ox O2 Delivery O2 Flow Rate FiO2 08/22/17 08:45 97.7 72 16 95/61 (72) 95 08/22/17 05:26 98.8 84 17 105/64 (78) 93 08/22/17 00:02 98.3 68 14 128/71 (90) 95 08/21/17 21:52 97.6 64 16 108/64 (79) 98 08/21/17 11:43 98.2 88 20 120/62 (81) 96 I/O 08/21/17 08/21/17 08/21/17 08/22/17 08/22/17 08/22/17 07:00 15:00 23:00 07:00 15:00 23:00 Intake Total 120 ml Output Total 1000 ml Balance -880 ml Intake Oral 120 ml Output Urine Total 1000 ml Result Diagram: 08/21/17 1154 08/21/17 1154 Imaging Last Impressions Chest X-Ray 08/19/17 0000 Signed Impressions: Service Date/Time: Saturday, August 19, 2017 15:37 - CONCLUSION: Marked hyperinflation Foster Dobbs MD FACR CT Angiography 08/19/17 0000 Signed Impressions: Service Date/Time: Saturday, August 19, 2017 18:32 - CONCLUSION: 1. No pulmonary embolus. 2. Emphysematous change. 3. Suspected scarring or atelectasis at the lung bases. Dm Harding MD Abdomen/Pelvis CT 08/19/17 0000 Signed Impressions: Service Date/Time: Saturday, August 19, 2017 18:32 - CONCLUSION: 1. No definite acute abnormality seen, however, there is a paucity of fat which would make identification of edema difficult. 2. Subcentimeter hepatic mass. This likely are cysts and incidental finding such as a cyst or hemangioma statistically. 3. Atelectasis or scarring at the lung bases. 4. Spondylolisthesis of the L5-S1 level. 5. Left adrenal myelolipoma. Dm Harding MD Objective Remarks GENERAL: cachectic, in no apparent distress. CARDIOVASCULAR: Regular rate and regular rhythm without murmurs, gallops, or rubs. RESPIRATORY: Clear to auscultation. Breath sounds equal bilaterally. No wheezes , rales, or rhonchi. GASTROINTESTINAL: Abdomen soft, non-tender, nondistended. Normal, active bowel sounds MUSCULOSKELETAL: Extremities without clubbing, cyanosis, or edema. NEURO: Alert & Oriented x4 to person, place, time, situation. Moves all ext x4 Procedures none Medications and IVs Inpatient Medications Acetaminophen/ Hydrocodone Bitart ([place] 10-325 Mg) 1 tab Q6H PRN PO PAIN 6-10 Last administered on 08/22/17at 09:14; Start 08/20/17 at 16:00 Alprazolam (Xanax) 2 mg Q8H PRN PO ANXIETY; Start 08/20/17 at 16:00 Bisacodyl (Dulcolax Supp) 10 mg DAILY PRN RECTAL SEVERE CONSITIPATION; Start at 21:30 Hydroxychloroquine Sulfate (Plaquenil) 200 mg BID PO Last administered on at 09:13; Start 08/20/17 at 09:00 Influenza Virus Vaccine (Flu (Quadrivalent) Vaccine Inj) 0.5 ml ONCE ONCE IM ; Start 08/21/17 at 10:00; Stop 08/21/17 at 10:01; Status DC Lactulose (Lactulose Liq) 30 ml DAILY PRN PO SEVERE CONSITIPATION; Start at 21:30 Magnesium Hydroxide (Milk Of Magnesia Liq) 30 ml Q12H PRN PO Mild constipation ; Start 08/19/17 at 21:30 Morphine Sulfate (Morphine Inj) 1 mg Q3H PRN IV PUSH BREAKTHROUGH PAIN Last administered on 08/20/17at 10:37; Start 08/19/17 at 21:30 Ondansetron HCl (Zofran Inj) 4 mg Q6H PRN IVP NAUSEA OR VOMITING; Start at 21:30 Senna/Docusate Sodium ([place]-Colace) 1 tab BID PO ; Start 08/20/17 at 09:00 Sennosides (Senokot) 17.2 mg Q12H PRN PO Moderate constipation; Start 08/19/17 at 21:30 Sodium Chloride (NS Flush) 2 ml BID IV FLUSH Last administered on 4/23/18at 09: 14; Start 08/20/17 at 09:00 Tiotropium [place] (Spiriva Inh) 18 mcg DAILY INH Last administered on at 09:13; Start 08/20/17 at 09:00 A/P Problem List: (1) Generalized weakness ICD Code: R53.1 - Weakness Status: Acute (2) Dehydration ICD Code: E86.0 - Dehydration (3) Pancytopenia ICD Code: D61.818 - Other pancytopenia (4) Pancreatitis ICD Code: K85.90 - Acute pancreatitis without necrosis or infection, unspecified Status: Acute Assessment and Plan A/P 1. Generalized Weakness/severe malnutrition: x3-4wks, associated w/ 10-15lb unintentional weight loss, +anorexia, concern for underlying malignancy. CTA Pulm negative for PE or mass, CT Abd/Pelvis w/ no definite abnormality , subcentimeter hepatic mass, left adrenal myolipoma PT for eval/tx. + malnutrition, Consulted Php Developer for further recommendations. 2. Dehydration: IVF for hydration, monitor. 3. Pancytopenia: concern for underlying malignancy in light of above symptoms - however the work-up is negative so far. Hematology evaluation appreciated; SPEP pending- f/u as outpatient. 4. elevated lipase but with no acute abnormality on CT and denies abdominal pain- 5.lupus; resumed Plaquenil. 6.hypertension; BP stable for now- continue to monitor. 7. DVT Prophylaxis: SCD/Teds palliative care consulted. Discharge Planning previously d/w the daughter; rehab was offered but the patient wants to go home ; will consult case management for [facility]. dc planning within the next 24 hrs- after seen by unemployment specialist and palliative care. Problem Qualifiers (1) Pancreatitis: Qualified Codes: K85.90 - Acute pancreatitis without necrosis or infection, unspecified Rancho Mandujano MD Aug 22, 2017 10:17
--- NOTE | 2017-08-22 10:18 | HHI.FF ---
Face to Face Verification Diagnosis: (1) Pancytopenia (2) Dehydration (3) Generalized weakness Physical Therapy Order: Evaluate and Treat Home Health Nursing Order: Medical education Signs/symptoms of disease process Medication education-adverse effect Nursing assessment with vital signs I have seen patient Diony Allen on 08/22/17. My clinical findings support the need for the requested home health care services because: Ltd mobility - disease progression I certify that my clinical findings support that this patient is homebound because: Unsteady gait/balance Rancho Mandujano MD Aug 22, 2017 10:18
--- NOTE | 2017-08-22 12:47 | PD.CONS ---
Consult Service Palliative Care . Consult Requested By Dr. Mandujano . Primary Care Physician Odessa Lion MD . Reason for Consultation a. To assist with evaluation and management of symptoms including: generalized pain; dyspnea; generalized weakness; anorexia/cachexia b. To assist medical decision maker(s) with: better understanding of current medical conditions; weighing benefits/burdens of medical treatment options; making medical treatment decisions. . HPI History of Present Illness Mr. Allen is a 62 y/o male with a known medical history that includes lupus; CAD s/p stent placement and s/p CABG, COPD, anxiety, hyperlipidemia; hypertension who reported to the [facility] ED on 08/19/17 c/o generalized weakness and weight. loss. The patient reported some slow steady decline over the last year or so. However, the weakness began to accelerate rapidly in the 3 weeks leading up to this hospital admission. The weakness seemed to begin in the patient's lower extremities-- he found it hard to get up out of a chair and to get up out of bed. The weakness then seemed then to spread to his upper extremities. The patient also reported that he had lost approximately 18-20 pounds of weight unintentionally over the last year. His family reports that it was actually somewhere between 20 and 30 pounds. The patient's appetite has been poor. Apparently, in the emergency department, either the patient or accompanying family members give a history of recent nausea/vomiting. Patient denies this when I speak to him. He denies abdominal pain, bright red blood per rectum, melena, constipation, or diarrhea. The patient underwent EGD back in 2012. At that time he was noted to have severe gastritis --it is important to note that the patient currently takes regular prednisone as well as aspirin. The patient has a history of coronary artery disease requiring stenting and then bypass surgery. There have been no recent chest pains. He has a long history of COPD. He is on handheld inhalers and nebulizers and systemic steroids at home. He has not been on supplemental oxygen. At baseline , he gets dyspneic just trying to walk across the room at home. The patient has suffered from lupus for decades. He has been unable to work for approximately 30 years. He tells me he has had chronic pain all of his life. He says the pain goes from "head to toes." He reports the pain reaches # 10 on most days. His analgesic regimen will bring pain levels down to #7. Pain rarely goes below a #7. His current opioid regimen involves hydrocodone/ acetaminophen 10/325. He reports normally taking 3-4 of these tablets per day. The patient also uses Soma on a regular basis. The patient has his prescriptions normally filled through his primary care physician -- Dr. Lion--who he says he visits monthly. He tells me she has been aware of the progressive weight loss. A review of the records shows that the patient has been on hydrocodone, soma, plaquenil , and systemic steroids at least since 2001. Vital signs in the emergency department were as follows temperature 98.1; pulse 83; respiratory rate 16; blood pressure 104/76; pulse oximetry 94% -- Examination by the emergency department traffic freight router noted the following --> patient appeared cachectic. No other abnormalities noted. Initial diagnostic tests showed the following: * CBC showed WBC 3.1; hemoglobin 12.0; platelet count 142; MCV 81.5 * Chemistry profile showed sodium 134; potassium 4.6; chloride 103; CO2 23.4; BUN 46; creatinine 0.97; random glucose 102; glomerular filtration rate 95; anion gap 8 * Liver function studies showed total bilirubin 0.2; AST 121; ALT 36; total protein 8.8; albumin 2.8 * Urinalysis remarkable only for small occult blood * Cardiac serology showed total CK 148; CK-MB 0.9; troponin 0 0.04 * Coagulation profile showed PT 15.7; INR 1.6; PTT 55.1 * chest x-ray showed marketed hyperinflation * CT angiography showed no evidence of pulmonary embolus. emphysematous changes were noted. * CT of the abdomen/pelvis showed no acute abnormality. There was a subcentimeter hepatic mass which the radiologist felt was a cyst. Atelectasis or scarring are noted at the lung bases. There is spondylolisthesis of the L5- S1 level The patient was admitted to the hospitalist service. Medical oncology was consulted to help evaluate for occult malignancy. Imaging did not reveal such a malignancy. Folic acid and vitamin B12 levels as well as HIV testing and hepatitis screen were ordered. Folic acid and B12 are within normal limits. Hepatitis and HIV serology are negative. A serum protein electrophoresis was ordered--results are pending. The patient has received IV fluids. He has received only one dose of IV morphine (1 mg) and one dose of [place] 10/325 since he arrived at the ED. His pain is uchanged from what it normally is at baseline, but he reports his weakness is slowly improving. . Function/Cognitive Trajectory Prior to the more acute weakness that began about 3 weeks prior to this hospital visit, the patient was mostly self-sufficient. He paid his own bills. He took care of his own activities of daily living. As noted above, patient would get short of breath just walking from room to room in his home. He normally uses a cane to assist with ambulation. He has had the weight loss and slow increase in fatigue noted above. . Review of Systems ROS Limitations: Other (ROS taken in person from the patient with additional information from family members in person and by phone and from the ROS taken by nursing at time of intake. ) Constitutional: COMPLAINS OF: Fatigue, Weight loss, Change in appetite, Pain, Generalized weakness, DENIES: Fever, Weight gain Endocrine: DENIES: Polydipsia, Polyuria, Polyphagia Eyes: COMPLAINS OF: Vision loss (Wears glasses) Ears, nose, mouth, throat: COMPLAINS OF: Hearing loss, DENIES: Throat pain, Ear Pain, Running Nose, Epistaxis Respiratory: COMPLAINS OF: Cough, Sputum production, Shortness of breath, DENIES: Apneas, Hemoptysis Cardiovascular: COMPLAINS OF: Dyspnea on Exertion, Lower Extremity Edema, DENIES: Chest pain, Palpitations Gastrointestinal: COMPLAINS OF: Anorexia, DENIES: Abdominal pain, Black stools , Bloody stools, Constipation, Diarrhea, Nausea, Vomiting, Difficulty Swallowing , Dyspepsia or heartburn Genitourinary: COMPLAINS OF: Decreased stream, DENIES: Urinary incontinence, Hematuria, Dysuria Musculoskeletal: COMPLAINS OF: Joint pain, Back pain, Decreased range of motion Hematologic/Lymphatics: DENIES: Bruising Immunologic/Allergic: DENIES: Eczema Neurologic: DENIES: Headache, Localized weakness, Seizures, Tremor, Poor Balance Psychiatric: COMPLAINS OF: Anxiety, Confusion, Depression, Hallucinations Past Family Social History Coded Allergies: Sulfa (Sulfonamide Antibiotics) (Unverified Allergy, Severe, SWELLING, 08/08) acetaminophen (Unverified Allergy, Severe, ALLERGIC TO BINDER - ITCHING, ) benazepril (Unverified Allergy, Severe, ANGIOEDEMA, 08/08/17) captopril (Unverified Allergy, Severe, ANGIOEDEMA, 08/08/17) codeine (Unverified Allergy, Severe, ALLERGIC TO BINDER - ITCHING, 08/08/17) enalaprilat (Unverified Allergy, Severe, ANGIOEDEMA, 08/08/17) fosinopril (Unverified Allergy, Severe, ANGIOEDEMA, 08/08/17) lisinopril (Unverified Allergy, Severe, ANGIOEDEMA, 08/08/17) methotrexate (Unverified Allergy, Severe, SWELLING, 08/08/17) quinapril (Unverified Allergy, Severe, ANGIOEDEMA, 08/08/17) Past Medical History PMH: Anxiety, Lupus, CAD s/p stents and CABG, Hypertension, Hyperlipidemia, COPD, sickle cell trait . Past Surgical History PAST SURGICAL HISTORY: CABG, Cardiac Stent, Bilateral Inguinal Hernia Repair, surgical repair of finger fractures 2009, chronic pain syndrome . Reported Medications Prehospitalization medications included the following: Zofran (Ondansetron HCl) 4 Mg Tab 4 Mg PO Q6HR PRN Plaquenil (Hydroxychloroquine Sulfate) 200 Mg Tab 200 Mg PO BID Prednisone 20 Mg Tab 20 Mg ; one by mouth daily Spiriva Handihaler (Tiotropium Inh) 18 Mcg Cap 18 Mcg INH DAILY Trazodone (Trazodone HCl) 50 Mg Tab 50 Mg PO HS Potassium Chloride ER (Potassium Chloride) 10 Meq Tab 10 Meq PO BID Omeprazole 20 Mg Tab 20 Mg PO DAILY Metoprolol Succinate ER 24 HR (Metoprolol Succinate) 25 Mg Tab 25 Mg PO DAILY Norvasc (Amlodipine Besylate) 10 Mg Tab 10 Mg PO DAILY Oxycodone (Oxycodone HCl) 15 Mg Tab 15 Mg PO Q6H PRN Hydrocodone-Acetaminophen 10-325 mg Tab 1 Tab PO Q6H PRN Lasix (Furosemide) 40 Mg Tab 40 Mg PO DAILY Soma (Carisoprodol) 350 Mg Tab 350 Mg PO QID PRN Symbicort Inh (Budesonide/Formoterol Fumarate) 80-4.5 Mcg/Act Aero 1 Puff INH Q12HR Atorvastatin (Atorvastatin Calcium) 10 Mg Tab 10 Mg PO HS Aspirin 325 Mg Tab 325 Mg PO DAILY Xanax (Alprazolam) 2 Mg Tab 2 Mg PO Q8H PRN Proair Hfa 8.5 GM Inh (Albuterol Sulfate) 90 Mcg/Act Aer 2 Puff INH Q4-6H PRN . Current Medications Medications (Trade) Dose Ordered Sig/Abdirahman Route Start Time Stop Time Status Last Admin Sodium Chloride 1,000 ml @ 100 mls/hr Q10H IV 08/19/17 21:19 08/22/17 09:14 (NS Flush) 2 ml UNSCH PRN IV FLUSH 08/19/17 21:30 (NS Flush) 2 ml BID IV FLUSH 08/20/17 09:00 08/22/17 09:14 (Zofran Inj) 4 mg Q6H PRN IVP 08/19/17 21:30 (Morphine Inj) 1 mg Q3H PRN IV PUSH 08/19/17 21:30 08/20/17 10:37 (Alannah-Colace) 1 tab BID PO 08/20/17 09:00 (Milk Of Magnesia Liq) 30 ml Q12H PRN PO 08/19/17 21:30 (Senokot) 17.2 mg Q12H PRN PO 08/19/17 21:30 (Dulcolax Supp) 10 mg DAILY PRN RECTAL 08/19/17 21:30 (Lactulose Liq) 30 ml DAILY PRN PO 08/19/17 21:30 (Plaquenil) 200 mg BID PO 08/20/17 09:00 08/22/17 09:13 (Spiriva Inh) 18 mcg DAILY INH 08/20/17 09:00 08/22/17 09:13 (Xanax) 2 mg Q8H PRN PO 08/20/17 16:00 ([place] 10-325 Mg) 1 tab Q6H PRN PO 08/20/17 16:00 08/22/17 09:14 . Family History Father in his 70s of heart disease. Mother is . She had lupus and rheumatoid arthritis Sister at an early age of complications of lupus. Family history also positive for stroke. . Substance Use Tobacco: Heavy use in past. 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 Has been on prescribed opioid analgesics for at at least 15 years Illicits: Reports history of street drug use in past; none in 15 years. . Psychosocial History Mr. Allen was originally from [place]. He moved to [place] as a child and has remained here. The patient reports 1/12 grade education. No experience. He worked mostly in construction. He had to stop working approximately 30 years ago because of disability from his lupus. The patient reports he has been twice. He remains legally though rarely interacts with his . He currently lives with a "girlfriend." The patient has 5 children--3 sons and 2 daughters. He has multiple grandchildren and some great-grandchildren. Currently, He lives at home with his girlfriend. . Spiritual/Cultural Factors Patient reports that hindu and spirituality are an important part of his life. He attends the [employer]. . Living Will: Copy in medical record Health Care Surrogate: Copy in medical record Durable Power of Meter Record Clerk: Never completed Date completed: A combined living will/healthcare surrogate designation was completed 2017. . Health Care Surrogate(s): Patient has designated his daughter -- Laine Allen -- as his healthcare surrogate. . Documented care wishes: Mr. Allen would not want a resuscitation attempt or to be sustained on life support if his doctors felt there was little chance of surviving or of returning to a life with meaning and purpose. Otherwise , he would want a resuscitation attempt. . Today's verbally stated goals: Same. . Family/friends goals: Granddaughter -- Mariajose eWst -- is at the bedside at the time advanced directives are discussed. She helped the patient think through this process and helped witness the final document. . Ethical and Legal Issues Patient is currently capacitated to make his own healthcare decisions. No significant ethical or legal issues noted at this time. . Physical Exam Vital Signs Date Time Temp Pulse Resp B/P (MAP) Pulse Ox O2 Delivery O2 Flow Rate FiO2 08/22/17 10:58 22 08/22/17 08:45 97.7 72 16 95/61 (72) 95 08/22/17 05:26 98.8 84 17 105/64 (78) 93 08/22/17 00:02 98.3 68 14 128/71 (90) 95 08/21/17 21:52 97.6 64 16 108/64 (79) 98 . 08/22/17 08/23/17 19:00 07:00 # Voids 1 # Bowel Movements 1 . Exam CONSTITUTIONAL/GENERAL: This a frail, cachectic, weak appearing male looking older than his stated age. No obvious distress. TUBES/LINES/DRAINS: Peripheral IV; nasal cannula oxygen. SKIN: No jaundice, rashes, or lesions. No wounds seen anteriorly. Skin temperature appropriate. Not diaphoretic. HEAD: Atraumatic. Normocephalic. Temporal wasting is present. EYES: Pupils equal and round and reactive. Extraocular motions intact. No scleral icterus. No injection or drainage. Fundi not examined. ENT: Hearing grossly normal. Nose without bleeding or purulent drainage. Throat without visible erythema, exudates, masses, or lesions. Patient is edentulous. NECK: Trachea midline. Supple, nontender. No palpable thyroid enlargement or nodularity. CARDIOVASCULAR: Regular rate and rhythm without murmurs, gallops, or rubs. No JVD. Peripheral pulses symmetric. RESPIRATORY/CHEST: Symmetric, unlabored respirations. Scattered faint crackles. No wheezing heard. Breath sounds equal bilaterally but diminished at both bases. GASTROINTESTINAL: Abdomen soft, non-tender, nondistended. No hepato-splenomegaly , or palpable masses. No guarding. Bowel sounds present. Bowel sounds normal. GENITOURINARY: Without palpable bladder distension. MUSCULOSKELETAL: Extremities without clubbing, cyanosis, or edema. Muscle atrophy is noted. No joint tenderness or effusion noted. No calf tenderness. No mottling. LYMPHATICS: No palpable cervical or supraclavicular adenopathy. NEUROLOGICAL: Awake and alert. Motor and sensory grossly within normal limits. Follows commands. Cognitively sharp. Moves all extremities. PSYCHIATRIC: No obvious anxiety/depression. No apparent hallucinations or other psychotic thought process. . Diagnostic Tests Laboratory Laboratory Tests Test 08/19/17 14:56 08/19/17 16:58 08/19/17 20:20 08/20/17 09:37 White Blood Count 3.1 TH/MM3 (4.0-11.0) 2.4 TH/MM3 (4.0-11.0) Red Blood Count 4.54 MIL/MM3 (4.50-5.90) 5.10 MIL/MM3 (4.50-5.90) Hemoglobin 12.0 GM/DL (13.0-17.0) 13.6 GM/DL (13.0-17.0) Hematocrit 37.0 % (39.0-51.0) 41.8 % (39.0-51.0) Mean Corpuscular Volume 81.5 FL (80.0-100.0) 82.0 FL (80.0-100.0) Mean Corpuscular Hemoglobin 26.5 PG (27.0-34.0) 26.6 PG (27.0-34.0) Mean Corpuscular Hemoglobin Concent 32.5 % (32.0-36.0) 32.4 % (32.0-36.0) Red Cell Distribution Width 14.2 % (11.6-17.2) 14.2 % (11.6-17.2) Platelet Count 142 TH/MM3 (150-450) 139 TH/MM3 (150-450) Mean Platelet Volume 8.4 FL (7.0-11.0) 8.0 FL (7.0-11.0) Neutrophils (%) (Auto) 70.6 % (16.0-70.0) 78.0 % (16.0-70.0) Lymphocytes (%) (Auto) 20.6 % (9.0-44.0) 17.0 % (9.0-44.0) Monocytes (%) (Auto) 8.4 % (0.0-8.0) 4.2 % (0.0-8.0) Eosinophils (%) (Auto) 0.0 % (0.0-4.0) 0.1 % (0.0-4.0) Basophils (%) (Auto) 0.4 % (0.0-2.0) 0.7 % (0.0-2.0) Neutrophils # (Auto) 2.2 TH/MM3 (1.8-7.7) 1.8 TH/MM3 (1.8-7.7) Lymphocytes # (Auto) 0.6 TH/MM3 (1.0-4.8) 0.4 TH/MM3 (1.0-4.8) Monocytes # (Auto) 0.3 TH/MM3 (0-0.9) 0.1 TH/MM3 (0-0.9) Eosinophils # (Auto) 0.0 TH/MM3 (0-0.4) 0.0 TH/MM3 (0-0.4) Basophils # (Auto) 0.0 TH/MM3 (0-0.2) 0.0 TH/MM3 (0-0.2) CBC Comment DIFF FINAL DIFF FINAL Differential Comment Blood Urea Nitrogen 46 MG/DL (7-18) 30 MG/DL (7-18) Creatinine 0.97 MG/DL (0.60-1.30) 0.76 MG/DL (0.60-1.30) Random Glucose 102 MG/DL (74-106) 96 MG/DL (74-106) Total Protein 8.8 GM/DL (6.4-8.2) 9.1 GM/DL (6.4-8.2) Albumin 2.8 GM/DL (3.4-5.0) 2.8 GM/DL (3.4-5.0) Calcium Level 8.5 MG/DL (8.5-10.1) 8.8 MG/DL (8.5-10.1) Alkaline Phosphatase 113 U/L (45-117) 116 U/L (45-117) Aspartate Amino Transf (AST/SGOT) 121 U/L (15-37) 119 U/L (15-37) Alanine Aminotransferase (ALT/SGPT) 36 U/L (12-78) 36 U/L (12-78) Total Bilirubin 0.2 MG/DL (0.2-1.0) 0.3 MG/DL (0.2-1.0) Sodium Level 134 MEQ/L (136-145) 136 MEQ/L (136-145) Potassium Level 4.6 MEQ/L (3.5-5.1) 4.9 MEQ/L (3.5-5.1) Chloride Level 103 MEQ/L (98-107) 105 MEQ/L (98-107) Carbon Dioxide Level 23.4 MEQ/L (21.0-32.0) 25.0 MEQ/L (21.0-32.0) Anion Gap 8 MEQ/L (5-15) 6 MEQ/L (5-15) Estimat Glomerular Filtration Rate 95 ML/MIN (>89) 126 ML/MIN (>89) Magnesium Level 2.4 MG/DL (1.5-2.5) Total Creatine Kinase 148 U/L (39-308) Creatine Kinase MB 0.9 NG/ML (0.5-3.6) Troponin I 0.04 NG/ML (0.02-0.05) Lipase 549 U/L (73-393) 897 U/L (73-393) Prothrombin Time 15.7 SEC (9.8-11.6) 15.4 SEC (9.8-11.6) Prothromb Time International Ratio 1.6 RATIO 1.5 RATIO Activated Partial Thromboplast Time 55.1 SEC (24.3-30.1) D-Dimer Quantitative (PE/DVT) 4.29 MG/L FEU (0.00-0.50) Urine Color LIGHT-YELLOW (YELLW/STRAW) Urine Turbidity CLEAR (CLEAR) Urine pH 6.0 (5.0-8.5) Urine Specific [place] 1.048 (1.002-1.035) Urine Protein 30 mg/dL (NEG-TRACE) Urine Glucose (UA) NEG mg/dL (NEG) Urine Ketones NEG mg/dL (NEG) Urine Occult Blood SMALL (NEG) Urine Nitrite NEG (NEG) Urine Bilirubin NEG (NEG) Urine Urobilinogen LESS THAN 2.0 MG/DL (LESS Urine Leukocyte Esterase NEG (NEG) Urine RBC LESS THAN 1 /hpf (0-3) Urine WBC LESS THAN 1 /hpf (0-5) Urine Squamous Epithelial Cells 1 /hpf (0-5) Microscopic Urinalysis Comment CATH-CULT NOT IND Erythrocyte Sedimentation Rate 65 mm/hr (0-20) Hepatitis A IgM Antibody NONREACTIVE (NONREACTIVE) Hepatitis B Surface Antigen NONREACTIVE (NONREACTIVE) Hepatitis B Core IgM Antibody NONREACTIVE (NONREACTIVE) Hepatitis C IgG Antibody NONREACTIVE (NONREACTIVE) Test 08/20/17 12:03 08/21/17 11:54 C-Reactive Protein 1.70 MG/DL (0.00-0.30) Total Protein 8.8 GM/DL (6.0-7.6) 7.7 GM/DL (6.4-8.2) Prostate Specific Antigen 0.48 NG/ML (0.00-4.00) Vitamin B12 Level 802 PG/ML (193-986) Folate 7.0 NG/ML (3.1-17.5) HIV (1&2) Ab and P24 Ag, 4th Gener NONREACTIVE (NONREACTIVE) White Blood Count 2.9 TH/MM3 (4.0-11.0) Red Blood Count 4.27 MIL/MM3 (4.50-5.90) Hemoglobin 11.4 GM/DL (13.0-17.0) Hematocrit 34.8 % (39.0-51.0) Mean Corpuscular Volume 81.4 FL (80.0-100.0) Mean Corpuscular Hemoglobin 26.7 PG (27.0-34.0) Mean Corpuscular Hemoglobin Concent 32.8 % (32.0-36.0) Red Cell Distribution Width 14.0 % (11.6-17.2) Platelet Count 124 TH/MM3 (150-450) Mean Platelet Volume 8.6 FL (7.0-11.0) Neutrophils (%) (Auto) 81.5 % (16.0-70.0) Lymphocytes (%) (Auto) 15.1 % (9.0-44.0) Monocytes (%) (Auto) 3.3 % (0.0-8.0) Eosinophils (%) (Auto) 0.0 % (0.0-4.0) Basophils (%) (Auto) 0.1 % (0.0-2.0) Neutrophils # (Auto) 2.3 TH/MM3 (1.8-7.7) Lymphocytes # (Auto) 0.4 TH/MM3 (1.0-4.8) Monocytes # (Auto) 0.1 TH/MM3 (0-0.9) Eosinophils # (Auto) 0.0 TH/MM3 (0-0.4) Basophils # (Auto) 0.0 TH/MM3 (0-0.2) CBC Comment DIFF FINAL Differential Comment Prothrombin Time 14.0 SEC (9.8-11.6) Prothromb Time International Ratio 1.4 RATIO Activated Partial Thromboplast Time 47.1 SEC (24.3-30.1) Fibrinogen 383 mg/dL (227-377) Blood Urea Nitrogen 20 MG/DL (7-18) Creatinine 0.55 MG/DL (0.60-1.30) Random Glucose 83 MG/DL (74-106) Albumin 2.3 GM/DL (3.4-5.0) Calcium Level 8.3 MG/DL (8.5-10.1) Alkaline Phosphatase 99 U/L (45-117) Aspartate Amino Transf (AST/SGOT) 135 U/L (15-37) Alanine Aminotransferase (ALT/SGPT) 44 U/L (12-78) Total Bilirubin 0.2 MG/DL (0.2-1.0) Sodium Level 138 MEQ/L (136-145) Potassium Level 4.1 MEQ/L (3.5-5.1) Chloride Level 107 MEQ/L (98-107) Carbon Dioxide Level 24.1 MEQ/L (21.0-32.0) Anion Gap 7 MEQ/L (5-15) Estimat Glomerular Filtration Rate 183 ML/MIN (>89) . Result Diagram: 08/21/17 1154 08/21/17 1154 Imaging Last Impressions Chest X-Ray 08/19/17 0000 Signed Impressions: Service Date/Time: Saturday, August 19, 2017 15:37 - CONCLUSION: Marked hyperinflation Foster Dobbs MD FACR CT Angiography 08/19/17 0000 Signed Impressions: Service Date/Time: Saturday, August 19, 2017 18:32 - CONCLUSION: 1. No pulmonary embolus. 2. Emphysematous change. 3. Suspected scarring or atelectasis at the lung bases. Dm Harding MD Abdomen/Pelvis CT 08/19/17 0000 Signed Impressions: Service Date/Time: Saturday, August 19, 2017 18:32 - CONCLUSION: 1. No definite acute abnormality seen, however, there is a paucity of fat which would make identification of edema difficult. 2. Subcentimeter hepatic mass. This likely are cysts and incidental finding such as a cyst or hemangioma statistically. 3. Atelectasis or scarring at the lung bases. 4. Spondylolisthesis of the L5-S1 level. 5. Left adrenal myelolipoma. Dm Harding MD . Patient/Family Conference Present at Family Conference: Spoke with patient at bedside for approximately 40 minutes. Patient's granddaughter was present for this. Also spoke via telephone with patient's daughter-- Laine-- for approximately 10 minutes. . Family Conference Time (mins): 50 Family Conference Location: Bedside, Telephone Issues Discussed: * Palliative care role, purpose, approach * Additional medical, psychosocial, and spiritual history * Patients general health, functional status, and cognitive changes in the months leading up to the current hospitalization * Patient/family understanding of the current medical problems * Patient/family understanding of prognosis * Patients goals of care as best understood from advance directives and/or conversations and/or values * Current medical treatment options and benefits/burdens of those options * Questions answered to the best of my ability * Palliative care contact information provided . Assessment and Plan Disease Oriented Problem List: (1) Generalized weakness (2) Weight loss (3) Appetite loss (4) Elevated lipase Comment: Lipase has been consistently elevated since 02/08/13 without overt signs of pancreatitis. . (5) Thickening of wall of gallbladder (6) Gallbladder sludge (7) Coagulopathy Comment: Elevated INR . Symptom Scale: (1) Pain 0-10 Scale: 7 Comment: Patient reports that he has chronic pain from head to toe and this pain has been present for decades. He attributes his pain to his lupus.: On a daily basis, pain levels reach #10 at home. He uses 3-4 hydrocodone/ acetaminophen 10/325 on a daily basis at home. Normally, the medication brings pain levels down to #7. He rarely has pain that is lower than a #7. I ask how he phoebe with this, and he says he has coped with this kind of pain all of his life. . (2) Dyspnea 0-10 Scale: Unable to quantify Comment: Patient has long-standing COPD. He is normally on hand-held inhalers and nebulizer treatments at home. He is not on home oxygen. He reports that at baseline, he gets very short of breath just walking from room to room in his house. He brings up a lot of phlegm but has not had hemoptysis. . (3) Cachexia 0-10 Scale: Unable to quantify Comment: Patient reports a 18-20 pound weight loss over the last year. Family reports weight loss is more like 20-30 pounds. There has been loss of appetite. \\ . Pertinent Non-Medical Issues Psychosocial: "Girlfriend" and 5 children provide emotional support. Currently lives with girlfriend. Spiritual: Member of the [employer]. Yazidi and spirituality are important to him. Legal: Completed his living will at time of initial palliative care consultaton on 08/22/17 Ethical issues impacting care: Patient is capacitated to make his own health care decisions. Has designated a health care surrogate. . Important Contacts * Laine Allen (daughter and health care surrogate) [phone] . Prognosis Patient has at least 3 significant underlying chronic illnesses -- CABG; lupus, and COPD. He has been failing to thrive for many , many months . He is now cachectic with no body fat reserves. He has lived with chronic pain for years and is on chronic opioid use for many years. He is on systemic steroids for many years. He has shown both gradual ongoing decline for at least a year and more recently an acute rapid decline. Whereas the slower decline is probably due to the progression of his chronic illnesses, the cause for the more rapid decline is uncertain. It does not appear to be an occult malignancy. It could be medication issues -- doses may need to be downtritated as he grows older and weight drops. . Code Status: Full Code Plan == Code Status: FULL CODE -- patient has stated he would like an attempt at resuscitation unless the doctors believe there is little to no chance he would survive or little to no chance he would return to a life of meaning and purpose. == Decision making: Patient is currently capacitated to make his own health care decisions. Should he become incapacitated, he has designated his daughter -- Laine Allen ([phone]) as his health care surrogate. == Goals of medical treatment: The patient would like aggressive treatment short of the limitations to resuscitation he has stated above. He would like to get stronger and be able to get back home. == Symptoms * Pain patient reports that he has chronic pain from head to toe and this pain has been present for decades. He attributes his pain to his lupus.: On a daily basis, pain levels reach #10 at home. He uses 3-4 hydrocodone/ acetaminophen 10/325 on a daily basis at home. Normally, the medication brings pain levels down to #7. He rarely has pain that is lower than a #7. I ask how he phoebe with this, and he says he has coped with this kind of pain all of his life. * Dyspnea: Patient has long-standing COPD. He is normally on hand-held inhalers and nebulizer treatments at home. He is not on home oxygen. He reports that at baseline, he gets very short of breath just walking from room to room in his house. He brings up a lot of phlegm but has not had hemoptysis. * Generalized weakness: Patient has had slow, progressive weakness over the last year or so that has been associated with his weight loss. However, in the 3 weeks leading up to this hospital admission, weakness became rapidly progressive. It began in his legs and then seemed to move to his upper extremities. There has been some improvement with nutrition and hydration. It is important to note that hydroxychloroquine can cause myopathy , especially in the proximal muscles, and the patient is now on a high dose for his weight. * Anorexia/Cachexia: Patient reports a 18-20 pound weight loss over the last year. Family reports weight loss is more like 20-30 pounds. There has been loss of appetite.\\ == Recommendations * The patient underwent EGD on 02/13/13. This showed very severe gastritis and Ashley esophagitis. This seemed to have impacted his appetite back then. They want to consider treating empirically for this if we choose not to repeat endoscopy at this time. * Patient had an abdominal ultrasound on 02/11/13 which showed sludging in the gallbladder and a significantly thickened gallbladder wall. If anorexia and failure to thrive persists, may want to reevaluate the gallbladder. * His lipase has been elevated for years. It does not seem to be from acute or chronic pancreatitis. There are a few reports of hydroxychloroquine causing elevated lipase. * Thyroid function has not been evaluated since 02/08/2013. TSH was normal then at 0.428. As thyroid dysfunction may be an easily treatable cause of weight loss, weakness, and fatigue, may want to consider reevaluation. * Recommend that his Hydroxychloroquine dose be cut in 1/2 to 200 mg/day and/or that the dose be reviewed by his political consultant. Normally , one would avoid doses over 5 mg /kg and he weighed 46 kg. His dose may have been appropriate when he weighed significantly more. One of the side effects of too much plaquenil can be myopathy, particularly of the proximal muscles. * As he gets older and his weight is decreasing, his current dosing of carisoprodol (Soma) at home may now be too much for him. This can cause anticholinergic effects and oversedation in the elderly. May want to consider reducing this dosing. * May want to consider mirtazapine instead of trazodone at night. It may help with appetite. If we continue with trazodone, may want to try decreasing the dose once again considering the patient's age and weight loss. * Patient's alprazolam dose may similarly need to be down adjusted given age and weight loss. * though patient is still reporting a #7 pain even after opioid use, would not recommend increasing at this time. I am reluctant to cause further fatigue/ somnolence with increasing opioids while we are addressing the above issues to see if we can lessen the weakness. * The medication reconciliation list indicates the patient has 2 short acting as needed opiates--the [place] 10/325 and oxycodone 15. Apparently, either may be taken every 6 hours as needed. Recommend that only one immediate release opiate be prescribed. * Patient and family have indicated a preference for going home post discharge as opposed to going to a rehab facility. If patient returns home, I think he would benefit from physical therapy. He will also need a walker. He could probably also benefit from home oxygen. * I believe the only other testing outstanding at this point his serum protein electrophoresis. Should that testing be negative, should he not improve with above recommended dose adjustments of of his medications, should no other cause for the patient's decline be found, and patient fails home health, we may want to revisit goals at that point and consider hospice. == Patient completed a living will today with his granddaughter in attendance and me at bedside. Approximately 25 minutes was spent on advance care planning which included the completion of the living will and health care surrogate designation in my presence. During the conversation we addressed, among other topics, resuscitation status, who would make his health care decisions if he decided not to designate a surrogate, and what quality of life he would want to continue fighting for. == Palliative care will continue to follow during the hospitalization to assist with symptom management and to further clarify goals of medical treatment as the clinical course evolves. . Time Spent Total Floor Time (mins): 90 (Total floor time included chart review; patient exam; above referenced bedside conversation with patient and granddaughter which included advance directive discussion and completion of a living will; telpehone conversation with the designated health care surrogate; in person collaboration with the attending physician -- Dr. Black; and documentation. ) Face to Face Time (mins): 45 >50% Counseling/Coord of Care: Yes (The 50% spent on counseling/coordination of care did not include the25 minutes spent on advance directifve discussion and explanation of living will and health care surrogate designation. ) Thank you for the opportunity to participate in the care of Mr. Allen. . . Attestation To help prompt me to consider important information that might be impacting today's encounter and assessment, information from prior notes written by myself or my colleagues may have been "brought forward" into today's note. My signature on this note, however, is an attestation that I personally performed the exam, history, and/or decision-making noted today, and, unless otherwise indicated, the interactions with patient, family, and staff as well as the review of records all occurred today. I also attest that the listed assessment and stated plan reflect my best clinical judgment today based on the combination of historical information, prior notes, and today's exam/ interactions. When time spent is documented, it refers only to time spent today by the signer, or if indicated, combined time spent today by collaborating physician/nurse practitioner.To help prompt me to consider important information that might be impacting today's encounter and assessment, information from prior notes written by myself or my colleagues may have been "brought forward" into today's note. My signature on this note, however, is an attestation that I personally performed the exam, history, and/or decision- making noted today, and, unless otherwise indicated, the interactions with patient, family, and staff as well as the review of records all occurred today. I also attest that the listed assessment and stated plan reflect my best clinical judgment today based on the combination of historical information, prior notes, and today's exam/ interactions. When time spent is documented, it refers only to time spent today by the signer, or if indicated, combined time spent today by collaborating physician/nurse practitioner. . Beau Sandoval MD Aug 22, 2017 12:47
[2017-08-22 12:49] VITALS: BP 121/73; PULSE 69; RESP 16; TEMP 97.6; O2SAT 95
--- NOTE | 2017-08-22 12:58 | HHI.DS ---
Discharge Summary Admission Date Aug 21, 2017 at 12:24 Discharge Date: Aug 22, 2017 Admitting Diagnosis abdominal pain, SOB, generalized weakness (1) Generalized weakness ICD Code: R53.1 - Weakness Diagnosis: Principal Status: Acute (2) Dehydration ICD Code: E86.0 - Dehydration Diagnosis: Principal (3) Pancytopenia ICD Code: D61.818 - Other pancytopenia Diagnosis: Principal Procedures none Brief History - From Admission This is a 62-year-old male with PMH of Anxiety, Lupus, CAD, Hyperlipidemia, COPD , h/o CVA and Depression who was brought to the ER secondary to generalized weakness and weight loss. Patient is a poor historian, unable to provide much history. at bedside providing some history, I also spoke w/ Daughter via phone who relayed pt has had progressive weakness x3-4wks, in addition to lethargy and weight loss of approx 15lbs. Per pt he has not been seen by PCP or been evaluated for this. Denies pain, fever, chills, nausea, vomiting or diarrhea. On arrival, BP 104/76, HR 83, O2 sat 94% on RA, Afebrile. WBC 3.1, hemoglobin 12.0, platelets 142. Chemistry essentially unremarkable. CPK normal. Troponin negative. Lipase 549. INR 1.6. UA negative for UTI. CXR with marked hyperinflation. CTA Pulm negative for PE, emphysematous changes, scarring or atelectasis at lung bases. CT Abdomen/Pelvis no definite acute abnormality, paucity of fat which could make identification of edema difficult, subcentimeter hepatic mass likely cysts, atelectasis at lung bases, left adrenal myolipoma. CBC/BMP: 08/21/17 1154 08/21/17 1154 Significant Findings Laboratory Tests Test 08/19/17 14:56 08/19/17 16:58 08/19/17 20:20 08/20/17 09:37 White Blood Count 3.1 TH/MM3 (4.0-11.0) 2.4 TH/MM3 (4.0-11.0) Hemoglobin 12.0 GM/DL (13.0-17.0) Hematocrit 37.0 % (39.0-51.0) Mean Corpuscular Hemoglobin 26.5 PG (27.0-34.0) 26.6 PG (27.0-34.0) Platelet Count 142 TH/MM3 (150-450) 139 TH/MM3 (150-450) Neutrophils (%) (Auto) 70.6 % (16.0-70.0) 78.0 % (16.0-70.0) Monocytes (%) (Auto) 8.4 % (0.0-8.0) Lymphocytes # (Auto) 0.6 TH/MM3 (1.0-4.8) 0.4 TH/MM3 (1.0-4.8) Blood Urea Nitrogen 46 MG/DL (7-18) 30 MG/DL (7-18) Total Protein 8.8 GM/DL (6.4-8.2) 9.1 GM/DL (6.4-8.2) Albumin 2.8 GM/DL (3.4-5.0) 2.8 GM/DL (3.4-5.0) Aspartate Amino Transf (AST/SGOT) 121 U/L (15-37) 119 U/L (15-37) Sodium Level 134 MEQ/L (136-145) Lipase 549 U/L (73-393) 897 U/L (73-393) Prothrombin Time 15.7 SEC (9.8-11.6) 15.4 SEC (9.8-11.6) Activated Partial Thromboplast Time 55.1 SEC (24.3-30.1) D-Dimer Quantitative (PE/DVT) 4.29 MG/L FEU (0.00-0.50) Urine Specific [place] 1.048 (1.002-1.035) Urine Protein 30 mg/dL (NEG-TRACE) Urine Occult Blood SMALL (NEG) Erythrocyte Sedimentation Rate 65 mm/hr (0-20) Test 08/20/17 12:03 08/21/17 11:54 C-Reactive Protein 1.70 MG/DL (0.00-0.30) Total Protein 8.8 GM/DL (6.0-7.6) White Blood Count 2.9 TH/MM3 (4.0-11.0) Red Blood Count 4.27 MIL/MM3 (4.50-5.90) Hemoglobin 11.4 GM/DL (13.0-17.0) Hematocrit 34.8 % (39.0-51.0) Mean Corpuscular Hemoglobin 26.7 PG (27.0-34.0) Platelet Count 124 TH/MM3 (150-450) Neutrophils (%) (Auto) 81.5 % (16.0-70.0) Lymphocytes # (Auto) 0.4 TH/MM3 (1.0-4.8) Prothrombin Time 14.0 SEC (9.8-11.6) Activated Partial Thromboplast Time 47.1 SEC (24.3-30.1) Fibrinogen 383 mg/dL (227-377) Blood Urea Nitrogen 20 MG/DL (7-18) Creatinine 0.55 MG/DL (0.60-1.30) Albumin 2.3 GM/DL (3.4-5.0) Calcium Level 8.3 MG/DL (8.5-10.1) Aspartate Amino Transf (AST/SGOT) 135 U/L (15-37) Imaging Last Impressions Chest X-Ray 08/19/17 Signed Impressions: Service Date/Time: Saturday, August 19, 2017 15:37 - CONCLUSION: Marked hyperinflation Foster Dobbs MD FACR CT Angiography 08/19/17 Signed Impressions: Service Date/Time: Saturday, August 19, 2017 18:32 - CONCLUSION: 1. No pulmonary embolus. 2. Emphysematous change. 3. Suspected scarring or atelectasis at the lung bases. Dm Harding MD Abdomen/Pelvis CT 08/19/17 0000 Signed Impressions: Service Date/Time: Saturday, August 19, 2017 18:32 - CONCLUSION: 1. No definite acute abnormality seen, however, there is a paucity of fat which would make identification of edema difficult. 2. Subcentimeter hepatic mass. This likely are cysts and incidental finding such as a cyst or hemangioma statistically. 3. Atelectasis or scarring at the lung bases. 4. Spondylolisthesis of the L5-S1 level. 5. Left adrenal myelolipoma. Dm Harding MD PE at Discharge GENERAL: cachectic, in no apparent distress. CARDIOVASCULAR: Regular rate and regular rhythm without murmurs, gallops, or rubs. RESPIRATORY: Clear to auscultation. Breath sounds equal bilaterally. No wheezes , rales, or rhonchi. GASTROINTESTINAL: Abdomen soft, non-tender, nondistended. Normal, active bowel sounds MUSCULOSKELETAL: Extremities without clubbing, cyanosis, or edema. NEURO: Alert & Oriented x4 to person, place, time, situation. Moves all ext x4 Hospital Course 1. Generalized Weakness/severe malnutrition: x3-4wks, associated w/ 10-15lb unintentional weight loss, +anorexia, concern for underlying malignancy. CTA Pulm negative for PE or mass, CT Abd/Pelvis w/ no definite abnormality , subcentimeter hepatic mass, left adrenal myolipoma PT for eval/tx. + malnutrition, Consulted Implement Mechanic for further recommendations. 2. Dehydration: IVF for hydration, monitor. 3. Pancytopenia: concern for underlying malignancy in light of above symptoms - however the work-up is negative so far. Hematology evaluation appreciated; SPEP pending- f/u as outpatient. 4. elevated lipase but with no acute abnormality on CT and denies abdominal pain- 5.lupus; resumed Plaquenil. 6.hypertension; BP stable for now- continue to monitor. 7. DVT Prophylaxis: SCD/Teds Pt Condition on Discharge: Guarded Discharge Disposition: Disch w/ Home Health Serv Discharge Time: <= 30 minutes Rancho Mandujano MD Aug 22, 2017 12:58
[2017-08-22] MEDS ORDERED: MIRTA15 PO ×2 (13:40→15:09)
--- NOTE | 2017-08-22 15:26 | PD.ONC.PN ---
Subjective Subjective Remarks Afebrile Patient resting in bed with granddaughter at bedside He reports that he has pain from head to toe at a level of 6 Denies shortness of breath at rest; states he gets mildly short of breath with activity Objective Data Date Time Temp Pulse Resp B/P (MAP) Pulse Ox O2 Delivery O2 Flow Rate FiO2 08/22/17 12:49 97.6 69 16 121/73 (89) 95 08/22/17 10:58 22 08/22/17 08:45 97.7 72 16 95/61 (72) 95 08/22/17 05:26 98.8 84 17 105/64 (78) 93 08/22/17 00:02 98.3 68 14 128/71 (90) 95 08/21/17 21:52 97.6 64 16 108/64 (79) 98 Result Diagram: 08/21/17 1154 08/21/17 1154 Administered Medications Medications (Trade) Dose Ordered Sig/Abdirahman Route PRN Reason Start Time Stop Time Status Last Admin Dose Admin Sodium Chloride 1,000 ml @ 100 mls/hr Q10H IV 08/19/17 21:19 08/22/17 09:14 Sodium Chloride (NS Flush) 2 ml BID IV FLUSH 08/20/17 09:00 08/22/17 09:14 Morphine Sulfate (Morphine Inj) 1 mg Q3H PRN IV PUSH BREAKTHROUGH PAIN 08/19/17 21:30 08/20/17 10:37 Hydroxychloroquine Sulfate (Plaquenil) 200 mg BID PO 08/20/17 09:00 08/22/17 09:13 Tiotropium Crivitz (Spiriva Inh) 18 mcg DAILY INH 08/20/17 09:00 08/22/17 09:13 Acetaminophen/ Hydrocodone Bitart ([place] 10-325 Mg) 1 tab Q6H PRN PO PAIN 6-10 08/20/17 16:00 08/22/17 09:14 Objective Remarks GENERAL: Thin older male who appears older than stated age resting in bed in no obvious distress SKIN: Warm and dry. HEAD: Normocephalic. EYES: No injection or drainage. NECK: Supple, trachea midline. CARDIOVASCULAR: Regular rate and rhythm without murmurs. RESPIRATORY: Clear anteriorly. Breathing unlabored at rest. GASTROINTESTINAL: Abdomen soft, non-tender, nondistended. EXTREMITIES: No cyanosis, or edema. MUSCULOSKELETAL: Generalized weakness NEUROLOGICAL: No obvious focal deficit. Awake, alert, and oriented x3. Assessment/Plan Assessment 62y/o male admitted with generalized weakness, failure to thrive. Hematology consulted for lymphocytopenia h/o SLE-->on Plaquenil --h/o COPD, CAD, tobaccoism. Plan 1. SPEP is pending and patient has discharge order for today 2. I have sent a message to our new patient referrals so that patient can follow-up in clinic for results 3. Supportive care Rere Spears Aug 22, 2017 15:26
[2017-08-22 15:36] VITALS: BP 120/84; PULSE 75; RESP 20; TEMP 98; O2SAT 97
[2017-08-22 21:59] LABS: ALB/GLOB RATIO (SPE) 0.63 (1.39-2.23)
== END 2017-08-22 17:38 | disposition home health service (06) | DRG 438 ==
LOC: NEDAMB 14:34 → NEDA 21:11 → NEDH 08-20 01:52 → NEPHCDU 08-20 07:51 → OBSVTOIN 08-21 12:24
PROVIDERS: ADMIT Hospitalist; ATTEND Hospitalist
DX: K85.90 Acute pancreatitis without necrosis or infection, unspecified (principal); E43 Unspecified severe protein-calorie malnutrition; D61.818 Other pancytopenia; R64 Cachexia; M32.9 Systemic lupus erythematosus, unspecified; K76.89 Other specified diseases of liver; Z68.1 Body mass index [BMI] 19.9 or less, adult; J98.11 Atelectasis; E86.0 Dehydration; D57.3 Sickle-cell trait; E78.5 Hyperlipidemia, unspecified; F41.9 Anxiety disorder, unspecified; G89.29 Other chronic pain; I10 Essential (primary) hypertension; I25.10 Atherosclerotic heart disease of native coronary artery without angina pectoris; I25.2 Old myocardial infarction; J44.9 Chronic obstructive pulmonary disease, unspecified; R53.1 Weakness; M43.17 Spondylolisthesis, lumbosacral region; D17.79 Benign lipomatous neoplasm of other sites; F32.9 Major depressive disorder, single episode, unspecified; R62.7 Adult failure to thrive; R79.1 Abnormal coagulation profile; Z86.73 Personal history of transient ischemic attack (TIA), and cerebral infarction without residual deficits; Z87.891 Personal history of nicotine dependence; Z95.1 Presence of aortocoronary bypass graft; Z95.5 Presence of coronary angioplasty implant and graft; Z79.891 Long term (current) use of opiate analgesic; Z79.82 Long term (current) use of aspirin; Z79.52 Long term (current) use of systemic steroids
CPT/HCPCS: 71045; 71275; 74177; 80053; 80074; 81001; 82550; 82552; 82607; 82746; 83690; 83735; 84153; 84165; 84484; 85025; 85379; 85384; 85610; 85652; 85730; 86140; 86703; 93005; 96361; 96375; G0378; G8987-GP; G8988-GP; J2270; J2405; J7030; J7040; Q9967